=== PATIENT | male | born 1955 | race Caucasian/White ===

== ENCOUNTER 2018-12-12 08:24 | Day surgery (SDC) | payer MEDICARE, OTHER, SELFPAY ==
[2018-12-12] VITALS (8 sets, daily range): BP systolic 87–111; BP diastolic 49–67; PULSE 53–68; RESP 10–17; TEMP 36.3; O2SAT 94–97; BMI 25.5
[2018-12-12] MEDS: SODIUM CHLORIDE 0.9% 1,000 ML 70 ML IV (08:50)
--- NOTE | 2018-12-12 09:03 | PM.HP.1 ---
History of Present Illness Date Patient Seen: 12/12/18 Chief complaint: [id number] [phone] SCREENING COLONOSCOPY W/POSS BX Narrative: 63-year-old male here for colon cancer screening. He has no prior history of colonoscopy, no family history of colon cancer Patient History Family & Social History Social History: household members spouse Tobacco & Substance use: Smoking Status Former smoker Meds Home Medications Medication Instructions Recorded Confirmed Type epinephrine [EpiPen 2-Yared] 0.3 mg IJ SEE INSTRUCTIONS #2 ea 11/29/16 06/13/18 Rx zoster vaccine live (PF) [Zostavax 0.5 ml SQ X1 #0.5 ml 11/29/16 06/13/18 Rx (PF)] tadalafil [Cialis] 5 mg PO QDAY #30 tab 12/06/16 06/13/18 Rx doxazosin 8 mg PO HS #90 tab 06/20/17 06/13/18 Rx melatonin 5 mg tablet 5 mg PO BEDTIME PRN 06/13/18 06/13/18 History meloxicam 15 mg tablet 15 mg PO DAILY 06/13/18 06/13/18 History oxycodone-acetaminophen 0 tab PO Q6HP PRN 12/12/18 History Allergies Allergy/AdvReac Type Severity Reaction Status Date / Time BEE STING Allergy Severe SWELLING Uncoded 06/13/18 09:35 OF EXTREMITIES 09/12/14 Exam Vital Signs (past 8 hours): - 12/12/18 08:44 Temperature 97.3 F L Pulse Rate 68 Respiratory Rate 15 Blood Pressure 111/60 Pulse Oximetry 97 Oxygen Delivery Method Room Air Narrative Exam Narrative: General: Patient is well developed, not in apparent distress Cardiovascular: Regular rate and rhythm, no murmurs, rubs, or gallops; no evidence of edema; no palpable abdominal aortic aneurysm Gastrointestinal: Normoactive bowel sounds, soft, nontender, nondistended, no rebound tenderness, no hepatosplenomegaly, no evidence of hernia Assessment & Plan Plan: Assessment/Plan Narrative: 63-year-old male here for average risk colon cancer screening. Regarding the procedure(s), the risks and potential complications, benefits, and alternatives (including not doing the procedure) were discussed with the patient. The risks include but are not limited to bleeding, splenic injury, infection, perforation which may require surgical intervention, missed lesions, and adverse reactions to sedative medicines. After a question and answer period, the patient agreed to proceed with the procedure(s) and gives informed consent.
--- NOTE | 2018-12-12 09:08 | P.HP_ITS ---
History of Present Illness Date Patient Seen: 12/12/18 Chief complaint: [id number] SCREENING COLONOSCOPY W/POSS BX Narrative: 63-year-old male here for colon cancer screening. He has no prior history of colonoscopy, no family history of colon cancer Patient History Family & Social History Social History: household members spouse Tobacco & Substance use: Smoking Status Former smoker Meds Home Medications Medication Instructions Recorded Confirmed Type epinephrine [EpiPen 2-Yared] 0.3 mg IJ SEE INSTRUCTIONS #2 ea 11/29/16 06/13/18 Rx zoster vaccine live (PF) [Zostavax 0.5 ml SQ X1 #0.5 ml 11/29/16 06/13/18 Rx (PF)] tadalafil [Cialis] 5 mg PO QDAY #30 tab 12/06/16 06/13/18 Rx doxazosin 8 mg PO HS #90 tab 06/20/17 06/13/18 Rx melatonin 5 mg tablet 5 mg PO BEDTIME PRN 06/13/18 06/13/18 History meloxicam 15 mg tablet 15 mg PO DAILY 06/13/18 06/13/18 History oxycodone-acetaminophen 0 tab PO Q6HP PRN 12/12/18 History Allergies Allergy/AdvReac Type Severity Reaction Status Date / Time BEE STING Allergy Severe SWELLING Uncoded 06/13/18 09:35 OF EXTREMITIES 09/12/14 Exam Vital Signs (past 8 hours): - 12/12/18 08:44 Temperature 97.3 F L Pulse Rate 68 Respiratory Rate 15 Blood Pressure 111/60 Pulse Oximetry 97 Oxygen Delivery Method Room Air Narrative Exam Narrative: General: Patient is well developed, not in apparent distress Cardiovascular: Regular rate and rhythm, no murmurs, rubs, or gallops; no evidence of edema; no palpable abdominal aortic aneurysm Gastrointestinal: Normoactive bowel sounds, soft, nontender, nondistended, no rebound tenderness, no hepatosplenomegaly, no evidence of hernia Assessment & Plan Plan: Assessment/Plan Narrative: 63-year-old male here for average risk colon cancer screening. Regarding the procedure(s), the risks and potential complications, benefits, and alternatives (including not doing the procedure) were discussed with the patient. The risks include but are not limited to bleeding, splenic injury, infection, perforation which may require surgical intervention, missed lesions, and adverse reactions to sedative medicines. After a question and answer period , the patient agreed to proceed with the procedure(s) and gives informed consent.
--- NOTE | 2018-12-12 09:08 | PM.OP.ENDO ---
Operative Date/Time/Diagnoses Date of procedure: 12/12/18 Procedure Notes Procedure in detail: Surgeon: Cy Moffett MD Procedure: Colonoscopy Preoperative diagnosis: Average risk colon cancer screening Postoperative diagnosis: Sigmoid diverticulosis, grade 2 internal hemorrhoids Medications: Conscious sedation using 6 mg IV of Midazolam and 150 mcg IV of Fentanyl Preanesthesia Assessment An H and P was performed/updated and the Px?s ASA class is 1. The procedure was discussed in detail with the patient. The potential risks and complications including infection, bleeding, missed lesions, perforation, need for surgery in case of perforation, prolonged hospital stay, and were explained. A brief question and answer period was allotted and once all questions were answered, informed consent was obtained. The patient was brought back to the procedure room and placed on standard monitoring. The patient?s vital signs were monitored continuously throughout the entire procedure. Prior to starting, a timeout was performed to confirm the patient?s identity, allergies, medications, and procedure. Procedure in detail The patient was placed in left lateral decubitus position and once adequate sedation was obtained a IQRA was performed. The digital rectal examination did not reveal any palpable lesions. The tip of the colonoscope was placed in the anal canal and advanced without difficulty all the way to the cecum which was identified by the appendiceal orifice and the ileocecal valve. Careful examination was performed of all sethi of the colon with irrigation of any residual stool. In the sigmoid colon there was note of multiple medium-sized diverticula Retroflexion was performed in the rectum which revealed grade 2 internal hemorrhoids The patient tolerated the procedure well and will be brought back to the recovery area to be discharged once criteria are met. The prep was judged to be good/excellent and adequate to identify polyps less than 5 mm. The withdrawal time was 8 mins. The total physician intraservice time was 13 min. Complications There were no complications and estimated blood loss was zero. Recommendations: Resume previous diet Continue outPx medications Repeat colonoscopy in 10 years for screening If you are having any trouble with your hemorrhoids please contact our office, as you can be evaluated for possible hemorrhoid banding An emergency contact number was given to the patient for any complications related to the procedure
[2018-12-12] MEDS: MIDAZOLAM 5 MG/5 ML VIAL IV (09:29)
[2018-12-12] MEDS: fentaNYL 250 MCG/5 ML INJ IV (09:29)
--- NOTE | 2018-12-12 09:30 | PM.DS.1 ---
History of Present Illness Chief complaint: [id number] [phone] SCREENING COLONOSCOPY W/POSS BX Narrative: 63-year-old male here for colon cancer screening. He has no prior history of colonoscopy, no family history of colon cancer Discharge Providers Primary care physician: Greg Paiz MD Discharge provider: Cy Moffett MD Discharge Date: 12/12/18 Exam Vital Signs (past 8 hours): - 12/12/18 08:44 Temperature 97.3 F L Pulse Rate 68 Respiratory Rate 15 Blood Pressure 111/60 Pulse Oximetry 97 Oxygen Delivery Method Room Air Narrative Exam Narrative: General: Patient is well developed, not in apparent distress Cardiovascular: Regular rate and rhythm, no murmurs, rubs, or gallops; no evidence of edema; no palpable abdominal aortic aneurysm Gastrointestinal: Normoactive bowel sounds, soft, nontender, nondistended, no rebound tenderness, no hepatosplenomegaly, no evidence of hernia Discharge Plan Discharge Plan Patient Disposition: Home Discharge Med Rec/Prescriptions Prescriptions: Continue epinephrine [EpiPen 2-Yared] 0.3 MG/0.3 ML auto-injector 0.3 mg IJ SEE INSTRUCTIONS Qty: 2 RF: 0 zoster vaccine live (PF) [Zostavax (PF)] 19,400 UNIT/0.65 ML suspension for reconstitution 0.5 ml SQ X1 Qty: 0.5 RF: 0 tadalafil [Cialis] 5 MG tablet 5 mg PO QDAY Qty: 30 RF: 6 doxazosin 8 MG tablet 8 mg PO HS Qty: 90 RF: 3 oxycodone-acetaminophen 5 MG/325 MG tablet PO Q6HP PRN (Reason: pain) RF: 0 melatonin 5 mg tablet 5 mg PO BEDTIME PRN (Reason: Pain (Scale Score 4-6)) RF: 0 meloxicam 15 mg tablet 15 mg PO DAILY RF: 0 Discharge Orders: Discharge (Order); Ordered 12/12/18 Ordered By: Cy Moffett Visit Report/Discharge Packet Stand Alone Forms: Surgery Discharge Discharge Data Primary Care Provider: Greg Paiz V Attending Provider: Cy Moffett
== END 2018-12-12 10:24 | disposition home or self-care (01) ==
PROVIDERS: PCP Internal Medicine; Visit Provider Internal Medicine Gastroenterology
PROC: 0DJD8ZZ Inspection of Lower Intestinal Tract, Via Natural or Artificial Opening Endoscopic (ICD-10-PCS; CPT 45378; principal; 2018-12-12 09:30)
DX: Z12.11 Encounter for screening for malignant neoplasm of colon (principal); K57.30 Diverticulosis of large intestine without perforation or abscess without bleeding; K64.1 Second degree hemorrhoids; Z87.891 Personal history of nicotine dependence
CPT/HCPCS: G0121; J2250; J3010

== ENCOUNTER → 2019-08-01 12:19 | Outpatient (CLI) | payer MEDICARE, OTHER, SELFPAY ==
[2019-08-01 13:05] LABS: Aspartate Aminotransferase 34 IU/L (17-59); Cholesterol 193 mg/dL (140-199); Glucose 104 mg/dL (80-110); HDL Cholesterol 95 mg/dL (40-60); LDL Cholesterol Calculated 81 mg/dL (<100); Triglycerides 84 mg/dL (35-150)
[2019-08-01 13:35] LABS: Prostate Specific Antigen 0.813 ng/mL (0.10-4.00)
== END ==
PROVIDERS: PCP Internal Medicine; Visit Provider Internal Medicine
DX: E78.2 Mixed hyperlipidemia (principal); N40.0 Benign prostatic hyperplasia without lower urinary tract symptoms
CPT/HCPCS: 36415; 80061; 82947; 84153; 84450

== ENCOUNTER → 2019-11-29 15:45 | Outpatient (CLI) | payer MEDICARE, OTHER, SELFPAY ==
--- NOTE | 2019-11-29 15:49 | DI.RAD.S_ITS ---
PROCEDURE: XR TIBIA FIBULA RT 2V INDICATIONS: CONTUSION OF LEFT CALF TECHNIQUE: 2 views of the tibia and fibula were acquired. COMPARISON: None. FINDINGS: Bones: No fractures or dislocations. No suspicious bony lesions. Soft tissues: No suspicious soft tissue calcifications or masses. IMPRESSION: No fracture or foreign body seen. Dictated by: Tyrone Jernigan M.D. on 11/29/2019 at 16:13 Approved by: Tyrone Jernigan M.D. on 11/29/2019 at 16:13
== END ==
PROVIDERS: PCP Internal Medicine; Visit Provider Internal Medicine
DX: S80.12XA Contusion of left lower leg, initial encounter (principal); X58.XXXA Exposure to other specified factors, initial encounter
CPT/HCPCS: 73590

== ENCOUNTER → 2020-03-20 12:03 | Outpatient (CLI) | payer MEDICARE, OTHER, SELFPAY ==
--- NOTE | 2020-03-20 | DI.MRI.S_ITS ---
PROCEDURE: MR LUMBAR SPINE WO CON INDICATIONS: Sciatica, unspecified side TECHNIQUE: Noncontrast sagittal T1 spin echo and T2 fast echo, sagittal STIR, axial T1 and T2 fast spin echo through the lumbar spine. In cases with scoliosis, additional coronal T2 fast spin echo may be performed. COMPARISON: [facility], CT, L-SPINE WITHOUT CONTRAST, 04/21/2013, 14:02. FINDINGS: Image quality: Excellent. Alignment and Curvature: There is normal bony alignment. Bone Marrow: Reactive endplate change is noted adjacent to the L2-L3, L3-L4 and L4-L5 discs. No acute vertebral body compression fractures. Spinal Cord: Conus medullaris terminates at the L1 level. Visualized cord demonstrates normal signal and size. Paraspinous Soft Tissues: No paravertebral masses. L1-L2: Loss of disc signal and slight loss of disc height. Mild, diffuse disc bulge. Mild narrowing of the central canal. Mild bilateral neural foraminal narrowing. No neural compression. L2-L3: Loss of disc signal and height. Mild, diffuse disc bulge. Mild bilateral facet hypertrophy. Mild to moderate narrowing of the central canal. Mild to moderate bilateral neural foraminal narrowing. No neural compression. L3-L4: Loss of disc signal and height. Moderate, diffuse disc bulge. Mild bilateral facet hypertrophy. Mild narrowing of the central canal. Mild bilateral neural foraminal narrowing. No neural compression. L4-L5: Loss of disc signal and height. Moderate, diffuse disc bulge. Small right foraminal disc extrusion. Mild bilateral facet hypertrophy. Mild to moderate narrowing of the central canal. Severe right and moderate left neural foraminal narrowing with compression of the exiting right L4 nerve root. L5-S1: Loss of disc signal. Mild, diffuse disc bulge. Mild bilateral facet hypertrophy. No central stenosis. Moderate bilateral neural foraminal narrowing. No neural compression. There is a fissure in posterior annulus. IMPRESSION: 1. Multilevel degenerative disc disease. 2. Multilevel facet arthropathy. 3. L4-L5 right foraminal disc extrusion. Extruded disc material causes severe right neural foraminal narrowing and compresses the exiting right L4 nerve root. Please correlate with clinical data. 4. Mild to moderate L2-L3 and L4-L5 central canal narrowing. Mild L1-L2 at L3-L4 central canal narrowing. 5. Severe right and moderate left L4-L5 neuroforaminal narrowing. Moderate bilateral L5-S1 with neural foraminal narrowing. Mild to moderate bilateral L2-L3 neuroforaminal narrowing. Mild bilateral L1-L2 and L3-L4 neural foraminal narrowing. Dictated by: Sharifa Briggs MD, PhD on 03/20/2020 at 14:52 Approved by: Sharifa Briggs MD, PhD on 03/20/2020 at 15:01
== END ==
PROVIDERS: PCP Internal Medicine; Referring Provider Internal Medicine; Visit Provider Internal Medicine
DX: M51.16 Intervertebral disc disorders with radiculopathy, lumbar region (principal); M51.17 Intervertebral disc disorders with radiculopathy, lumbosacral region; M47.26 Other spondylosis with radiculopathy, lumbar region; M47.27 Other spondylosis with radiculopathy, lumbosacral region; M48.061 Spinal stenosis, lumbar region without neurogenic claudication; M48.07 Spinal stenosis, lumbosacral region
CPT/HCPCS: 72148

== ENCOUNTER → 2020-05-19 12:15 | Outpatient (CLI) | payer MEDICARE, OTHER, SELFPAY ==
[2020-05-19 13:13] LABS: Add Manual Diff / Slide Review NO; Basophils Absolute Auto 0 /uL (0-100); Basophils Percent Auto 0.9 % (0-2); Eosinophils Absolute Auto 100 /uL (0-450); Eosinophils Percent Auto 2.9 % (2-4); Hematocrit 35.9 % (41-53); Hemoglobin 12.4 g/dL (13.5-17.5); Lymphocytes Absolute Auto 1600 /uL (1100-4500); Lymphocytes Percent Auto 34.6 % (25-40); Mean Corpuscular HGB Conc 34.5 % (30-36); Mean Corpuscular Volume 95.4 fL (80-100); Monocytes Absolute Auto 400 /uL (0-900); Monocytes Percent Auto 9.5 % (3-14); Neutrophils Absolute Auto 2400 /uL (1500-7000); Neutrophils Percent Auto 52.1 % (50-75); Platelet Count 244 X10^3/uL (150-400); Red Blood Cell Count 3.76 X10^6/uL (4.5-5.9); Red Cell Distribution Width 12.3 % (11.6-14.8); White Blood Cell Count 4.7 X10^3/uL (4.5-11.0)
== END ==
PROVIDERS: PCP Internal Medicine; Referring Provider Orthopaedic Surgery; Visit Provider Orthopaedic Surgery
DX: Z01.818 Encounter for other preprocedural examination (principal); Z01.812 Encounter for preprocedural laboratory examination
CPT/HCPCS: 36415; 85025; 93005; 93010

== ENCOUNTER → 2020-05-25 15:19 | Outpatient (CLI) | payer MEDICARE, OTHER, SELFPAY ==
[2020-05-26 09:52] LABS: COVID19 Sendout Not Detected (Not Detect)
== END ==
PROVIDERS: PCP Internal Medicine; Visit Provider Student in an Organized Health Care Education/Training Program
DX: Z01.812 Encounter for preprocedural laboratory examination (principal)
CPT/HCPCS: 87635

== ENCOUNTER 2020-05-28 06:15 | Day surgery (SDC) | payer MEDICARE, OTHER, SELFPAY ==
[2020-05-22 08:32] VITALS: BMI 25.9
[2020-05-28] VITALS (12 sets, daily range): BP systolic 88–120; BP diastolic 50–76; PULSE 48–67; RESP 7–20; TEMP 35.7–36.7; O2SAT 96–98; BMI 25.4
--- NOTE | 2020-05-28 | DI.RAD.S_ITS ---
PROCEDURE: XR LUMBAR SPINE 2-3V INDICATIONS: L45 DISCECTOMY TECHNIQUE: 2 views of the lumbar spine were acquired. COMPARISON: [facility], MR, MR LUMBAR SPINE WO CON, 03/20/2020, 12:44. [facility], CR, L-SPINE 2-3 VIEWS, 11/03/2009, 10:57. FINDINGS: Bones: Intraoperative imaging shows right sided L4-5 port and probe positioning for discectomy. Soft tissues: Overlying bowel gas pattern is normal. No suspicious soft tissue calcifications. IMPRESSION: Right-sided L4-5 operative positioning. Dictated by: Tyrone Jernigan M.D. on 05/28/2020 at 8:50 Approved by: Tyrone Jernigan M.D. on 05/28/2020 at 8:52
[2020-05-28] MEDS: LACTATED RINGERS 1,000 ML 42 ML IV (07:10)
--- NOTE | 2020-05-28 07:17 | PM.PREOP ---
Pre-operative Note COVID-19 COVID-19 status: Negative Result date/Date tested (Pos, Neg/Pending): 05/25/20 Interval Note History & Physical reviewed/Exam performed by Physician: Yes Changes to H&P: No
[2020-05-28] MEDS: CEFAZOLIN 2 GM/100 ML FROZ.PIGGY IV (07:46)
--- NOTE | 2020-05-28 08:26 | SUR.OPER ---
Prone on spine table, head in foam head support, padded chest and pelvic supports, gel pad at knees, lower legs supported by pillows; nipples, genitalia and toes free of pressure, arms secured on foam padded arm boards at <90 degrees abduction. Tape over blanket at thigh secured to table.
[2020-05-28] MEDS: BUPIVACAINE 0.25% (PF) 8 ML, fentaNYL 100 MCG INJ (08:32)
[2020-05-28] MEDS: SODIUM CHLORIDE 0.9% 1,000 ML, GENTAMICIN 80 MG IRR (08:33)
[2020-05-28] MEDS: THROMBIN (RECOMBINANT) 5,000 UNIT VIAL 5000 UNIT TOP (08:35)
[2020-05-28] MEDS: VANCOMYCIN 1,000 MG VIAL 1000 MG TOP (08:36)
--- NOTE | 2020-05-28 09:20 | PM.OP.1 ---
Operative Date/Time/Diagnoses Date of procedure: 05/28/20 Time of procedure: 09:21 Pre-op diagnosis: Lumbar disc herniation with radiculopathy Post-op diagnosis: same Procedure & Clinicians Procedure: L4-5 right-sided diskectomy Use of microscope Placement of epidural catheter Same procedure as scheduled: Yes Indications: [age] year old male with intractable pain from lumbar disc herniation. They had failed conservative management and requested operative intervention. Risks and benefits of surgery were discussed and appropriate consents were obtained. Surgeon: Geoff Villavicencio Anesthesia Type: General Operative Notes Findings: None Closure Type: primary Specimen(s): none sent Estimated Blood Loss (mL): 10 Procedure in detail: Patient was brought to the operating room and intubated on the table. A time-out was performed. There were rolled over the well-padded prone position on the Gamaliel table. The back was prepped and draped in standard sterile fashion. Preoperative antibiotics were given. Using fluoroscopy, a 3 cm incision was made to the well-marked right of the midline at the L4-5 level. We used Bovie to come down to and split the fascia. We then used the [employer] Ma[employer] dilators with fluoroscopy and then opened our retractors. The soft tissue was cleared off with Bovie, a marker was placed, an x-ray was taken to confirm positioning. We then brought in the microscope. A combination of high-speed bur and Kerrison were used to perform a right-sided hemilaminotomy and hemifacetectomy. We carefully retracted the dura and expose the disc. This was cleared with bipolar. A scalpel used to perform an annulotomy and a pituitary was used to perform the diskectomy. He still had a very large portion of the disc as well as osteophyte going into the foraminal space in the subarticular region. We continued with the hemilaminotomy and undermined the facet until we could clear out the neural foramen. We isolated the nerve root and swept it out of the way. We then used a Kerrison to remove some of the posterior osteophytes and smoothed down the back wall of the vertebral body. We used a backbiting pituitary to go out to the subarticular space and remove more disc tissue. Once this was done, we could sweep the ball probe along the exiting nerve root and it was completely freed up. The central canal was also wide open. The ball probe was also placed into the disc and moved around to make sure there were no further loose fragments. Once everything was adequately decompressed, the wound was copiously irrigated. An epidural catheter was filled with 100 mcg of fentanyl and 8 mL of 0.25% Marcaine. The dura was carefully depressed under the laminotomy site and the catheter was advanced 6 cm cephalad. The retractor was removed and the fascia was closed. The epidural catheter was then injected without resistance and removed. Superficial and skin were closed. Sterile dressing was placed. The patient was then rolled over, transferred to the stretcher, and brought to recovery room without complications. Complications: none Post-operative Condition: stable Disposition: PACU Plan for aftercare: Outpatient. Limited bend, twist, lift for 2 weeks.
--- NOTE | 2020-05-28 10:06 | SUR.PHASEI ---
Patient arrived in PACU with oral airway and sedated. Rhys DP + 2.Cap refill > 2 seconds. Patient does not arouse to sternal rub.
--- NOTE | 2020-05-28 10:10 | SUR.PHASEI ---
Oral airway out.
--- NOTE | 2020-05-28 10:24 | SUR.PHASEI ---
Denies pain and nausea.
[2020-05-28] MEDS: BENZOCAINE/MENTHOL 1 LOZ PKT 1 EACH PO (11:22)
--- NOTE | 2020-05-28 14:28 | SUR.PHASEII ---
1300 late entry: discharged patient in stable condition with all belongings returned. VSS. Home with via private vehicle.
== END 2020-05-28 13:00 | disposition home or self-care (01) ==
PROVIDERS: PCP Internal Medicine; Referring Provider Internal Medicine; Visit Provider Orthopaedic Surgery
PROC: (CPT 63030; principal; 2020-05-28 07:45)
DX: M51.16 Intervertebral disc disorders with radiculopathy, lumbar region (principal)
CPT/HCPCS: 63030; 72100; 76000; J0690; J1100; J2250; J2405; J2704; J3010

== ENCOUNTER → 2020-06-18 19:07 | Outpatient (CLI) | payer MEDICARE, OTHER, SELFPAY ==
--- NOTE | 2020-06-18 19:09 | DI.MRI.S_ITS ---
PROCEDURE: MR KNEE RT WO CON INDICATIONS: UNILATERAL PRIMARY OSTEOARTHRITIS, RIGHT KNEE TECHNIQUE: Noncontrast sagittal PD fast spin echo and T2 fast spin echo with fat saturation, sagittal 3-D FLASH with fat saturation; coronal T1 spin echo and PD fast spin echo with fat saturation, and axial PD fast spin echo with fat saturation through the knee. COMPARISON: [facility], MR, KNEE WITHOUT CONTRAST, 08/07/2017, 7:05. FINDINGS: Image quality: Excellent. Menisci: There is blunting of the lateral meniscus most prominent in the posterior horn and body likely reflecting postsurgical changes. There is degenerative tearing along the free edge of the remnant meniscus as well as a peripheral tear along the superior articular surface of the posterior horn involving the meniscocapsular junction. A horizontally oriented longitudinal tear is redemonstrated within the body and posterior horn of the medial meniscus extending to the inferior articular surface and free edge. The meniscal root ligaments appear intact. 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 The posterior cruciate ligament appears intact. Medial structures: The medial collateral ligament appears intact. The semimembranosus tendon insertions and meniscocapsular junction appear intact. Visualized portions of the pes anserinus tendons appear intact without associated bursal fluid collections. Lateral structures: The lateral collateral ligament, long and short heads of the biceps femoris tendon appear intact. The popliteus tendon appears thickened proximally at its origin with peritendinous edema compatible with sequelae of a mild strain. Findings are similar to the prior study. Iliotibial band appears normal. Anterior structures: The quadriceps and patellar tendons appear intact. There is slight lateral shift of the patella. No femoral trochlear dysplasia or ventral trochlear prominence. No edema in the infrapatellar fat pad. Bones and cartilage: No bone marrow contusions or fractures. There is tricompartmental osteophytosis. Moderate to severe cartilage thinning is demonstrated in the lateral compartment with associated subchondral edema and sclerosis, most prominent along the lateral tibial plateau. The findings are progressed compared to the prior study. In the medial compartment, there is mild to moderate cartilage thinning with chondral fissuring associated with small foci of subchondral edema. In the patellofemoral compartment, there is mild cartilage thinning with superficial chondral fraying. Joint space: There is a small joint effusion. No Doe's cyst. Normal appearing synovial plicae are incidentally noted. IMPRESSION: 1. Diminutive blunted appearance of the lateral meniscus likely reflecting postsurgical changes. A peripheral tear is redemonstrated within the posterior horn as well as degenerative tearing in the remnant meniscus. 2. Horizontally oriented longitudinal tear in the medial meniscus appears similar to the prior study. 3. Tricompartmental osteoarthritic changes including moderate to severe cartilage degeneration in the lateral compartment. Findings are progressed compared to the prior study. 4. Small joint effusion. Dictated by: Migue Leon M.D. on 06/19/2020 at 9:14 Approved by: Migue Leon M.D. on 06/19/2020 at 9:33
== END ==
PROVIDERS: PCP Internal Medicine; Referring Provider Internal Medicine; Visit Provider Orthopaedic Surgery
DX: M17.11 Unilateral primary osteoarthritis, right knee (principal); S83.261A Peripheral tear of lateral meniscus, current injury, right knee, initial encounter; S83.241A Other tear of medial meniscus, current injury, right knee, initial encounter; M25.461 Effusion, right knee
CPT/HCPCS: 73721

== ENCOUNTER 2020-06-22 16:39 | Observation (INO) | payer MEDICARE, OTHER, SELFPAY ==
[2020-06-22] VITALS (10 sets, daily range): BP systolic 111–161; BP diastolic 58–72; PULSE 46–75; RESP 12–33; TEMP 36.5–36.7; O2SAT 95–97; BMI 25.9
--- NOTE | 2020-06-22 | DI.ECHO.S_ITS ---
[facility] +---------+ : : [address] [place] : : : : [id number] : : : : Phone: [phone]---------+ Echocardiogram Report + + :Name: DORON NGUYEN Study Date: 06/23/2020 Height: 67 in : :[facility] Weight: 166 lb : : Gender: Male BSA: 1.9 m2 : :: 1955 Age: 65 yrs BP: 161/67 mmHg: :Reason For Study: CHEST PAIN : :Ordering Physician: Jane : :Hospitalist Performed By: Yola Bender : :Referring: KEVIN JIMENEZ : + + Interpretation Summary The left ventricle is normal in size and wall thickness. The ejection fraction is estimated to be 60-65%. The right ventricle is normal in size and function. There is mild to moderate mitral regurgitation. There is mild tricuspid regurgitation. The right ventricular systolic pressure is estimated to be at least 34 mmHg based on an estimated right atrial pressure of 3 mm Hg. Procedure: A two-dimensional transthoracic echocardiogram with color flow and Doppler was performed. The study quality was technically adequate. There is no prior echocardiogram noted for this patient. The patient was in sinus rhythm with heart rates between 63-71 bpm during the exam. Left Ventricle: The left ventricle is normal in size and wall thickness. A false chord is noted (normal variant). There is no thrombus. The ejection fraction is estimated to be 60-65%. There are no focal wall motion abnormalities. Diastolic parameters suggest a relaxation abnormality of the left ventricle, consistent with probable normal filling pressures. Right Ventricle: The right ventricle is normal in size and function. Atria: The left atrial size is normal. Right atrial size is normal. There is no Doppler evidence for an interatrial shunt. Mitral Valve: There is mild mitral annular calcification. The mitral valve chordae are thickened and/or calcified. There is a flat closure plane of the the mitral valve leaflets. There is mild to moderate mitral regurgitation. Aortic Valve: The aortic valve is trileaflet. The aortic valve opens well. There is no aortic valve stenosis. No aortic regurgitation is present. Tricuspid Valve: The tricuspid valve is normal in structure and function. The right ventricular systolic pressure is estimated to be at least 34 mmHg based on an estimated right atrial pressure of 3 mm Hg. There is mild tricuspid regurgitation. Pulmonic Valve: The pulmonic valve is not well visualized. The pulmonic valve is not well seen, but is grossly normal. There is trace pulmonic regurgitation. Great Vessels: The aortic root is normal size. The dimensions of the ascending aorta are normal. The IVC is of normal diameter and collapses greater than 50% with a sniff. This suggests a low right atrial pressure of 3 mm Hg. Pericardium/ Pleura There is no pericardial effusion. There is no pleural effusion. MMode/2D Measurements & Calculations LVIDd: 5.0 cm LVOT diam: 2.2 cm LVIDs: 3.1 cm Ao root diam: 2.6 cm FS: 37.1 % asc Aorta Diam: 2.9 cm EPSS: 1.1 cm Ao Arch Diam (Prox Trans): 3.1 cm IVSd: 0.72 cm LVPWd: 0.75 cm LV guradado. diameter/BSA (cm/m^2): 2.7 LV sys. diameter/BSA (cm/m^2): 1.7 LA A2 area: 19.2 cm2 RA long axis: 5.5 cm LA A4 area: 20.5 cm2 RA area: 19.2 cm2 LA length (vol): 5.7 cm RA vol: 56.7 ml LA vol: 58.6 ml RA : 30.4 ml/m2 LA vol index: 31.4 ml/m2 IVC diam: 1.9 cm RVD1 (basal): 3.9 cm TAPSE: 2.6 cm Doppler Measurements & Calculations Ao V2 max: 196.9 cm/sec LVOT Max George: 129.7 cm/sec Ao V2 mean: 120.3 cm/sec LV V1 max P.7 mmHg Ao max P.5 mmHg LV V1 VTI: 23.8 cm Ao mean P.9 mmHg WHITNEY(I,D): 2.5 cm2 Ao V2 VTI: 34.7 cm WHITNEY(V,D): 2.4 cm2 sev ratio: 0.69 WHITNEY indexed to BSA (cm^2/m^2): 1.3 MV E max george: 83.2 cm/sec TR max george: 279.7 cm/sec MV A max george: 94.8 cm/sec TR max P.3 mmHg MV E/A: 0.88 PA V2 max: 113.2 cm/sec Med Peak E' George: 8.8 cm/sec PA V2 mean: 78.3 cm/sec E/E' med: 9.5 PA mean P.7 mmHg Lat Peak E' George: 10.3 cm/sec PA pr(Accel): 48.2 mmHg E/E' lat: 8.1 E/e' average: 8.8 MV dec time: 0.28 sec SV(OT): 87.0 ml Reading Physician:12:31 PM
--- NOTE | 2020-06-22 | DI.NM.S_ITS ---
PROCEDURE: NM BENJAMIN PERF SPECT SINGLE STUDY Exercise myocardial perfusion SPECT with gated imaging and ejection fraction RADIOPHARMACEUTICAL: 21.3 mCi Tc-99m sestamibi IV at peak exercise. INDICATIONS: chest pain, fatigue TECHNIQUE: Radiopharmaceutical was injected at peak stress test. SPECT images were obtained, with perfusion images in short axis, horizontal long axis, and vertical long axis views. Gated images were reviewed using [employer] software. COMPARISON: None. CARDIAC STRESS: A standard Sharan treadmill exercise tolerance test was performed by the patient under the supervision of an attending staff. The patient exercised for 8 minutes and 0 seconds; functional aerobic impairment (IESHA) is -7%. Hemodynamic data: There is normal blood pressure and heart response to exercise. Patient achieved 101 of maximum predicted heart rate. Symptoms: Patient denied anginal chest pain during exercise. EKG: No diagnostic changes of ischemia; no ectopy. FINDINGS: Raw data: There is good labeling of myocardium by radiotracer. No significant motion artifacts. Gaai-tx-xugkp ratio is 0.38 (normal is less than 0.38 for sestamibi tracer, and less than 0.50 for thallium tracer). Left ventricular function: Gated images demonstrate normal left ventricle wall thickening. No segmental wall motion abnormalities. Left ventricle end diastolic volume is 105 mL. Left ventricle stress ejection fraction is 74%; normal values are above 45%. Myocardial perfusion: Stress prone images are normal IMPRESSION: Low risk, normal treadmill stress only nuclear study. 1) No perfusion evidence of ischemia or infarction. 2) Normal left ventricular size, wall motion, and systolic function (EF post stress 74%). 3) No ECG evidence of ischemia or infarction. 4) No angina during the study. 5) Above average exercise tolerance (10.1 METs, IESHA -7%). Target heart rate achieved. Apprporiate BP response to exercise. 6) No prior nuclear stress test available for comparison. Dictated by: Chloé Srinivasan MD on 06/23/2020 at 16:49 Approved by: Chloé Srinivasan MD on 06/23/2020 at 16:52
--- NOTE | 2020-06-22 17:33 | DI.RAD.S_ITS ---
PROCEDURE: XR CHEST 1V INDICATIONS: chest pain TECHNIQUE: One view of the chest was acquired. COMPARISON: [facility], , CHEST 1 VIEW, 04/21/2013, 13:53. FINDINGS: Surgical changes and devices: None. Lungs and pleura: Lungs are clear. No pleural effusions or pneumothorax. Mediastinum: Mediastinal contours appear normal. Heart size is normal. Bones and chest wall: No suspicious bony lesions. Overlying soft tissues appear unremarkable. IMPRESSION: No acute disease Dictated by: Nir Kaufman M.D. on 06/22/2020 at 18:07 Approved by: Nir Kaufman M.D. on 06/22/2020 at 18:07
[2020-06-22] MEDS: ASPIRIN 81 MG CHEW TAB 324 MG PO (17:41)
--- NOTE | 2020-06-22 18:10 | ED_ITS ---
HPI - SOB/Dyspnea General Chief Complaint: Shortness of Breath/Dyspnea Stated Complaint: sent for tests so he doesn't Time Seen by Provider: 06/22/20 17:33 Source: patient and family Mode of arrival: Ambulatory Limitations: no limitations History of Present Illness HPI Narrative: 65-year-old male former smoker with history of BPH presents at the request of his primary care provider with his . Patient suffered injury to his back a few months ago which resulted in the need for orthopedic spine surgery. In the aftermath of this surgery he is developed increasing exertional fatigue and dyspnea in the absence of other symptoms such as dizziness, lightheadedness nor chest pain. He has had no cough or hemoptysis. He denies any nausea, vomiting or unexplained diaphoresis. He denies any lower extremity swelling, pain or redness. MD Complaint: shortness of breath Onset (ago): week(s) Severity: moderate Consistency/Duration: progressively worsening Relieving factors: rest Exacerbating factors: exertion Associated symptoms: denies other symptoms Treatment prior to arrival: none Related Data Home Medications Medication Instructions Recorded Confirmed melatonin 5 mg tablet 5 mg PO BEDTIME PRN 06/13/18 06/22/20 meloxicam 15 mg tablet 15 mg PO DAILY 06/13/18 06/22/20 tadalafil [Cialis] 5 mg PO QDAY PRN 05/28/20 06/22/20 tizanidine 2 mg PO BID PRN 05/28/20 06/22/20 doxazosin 8 mg PO DAILY 06/22/20 06/22/20 Previous Rx's Medication Instructions Recorded epinephrine [EpiPen 2-Yared] 0.3 mg IJ SEE INSTRUCTIONS #2 ea 11/29/16 oxycodone-acetaminophen [Percocet] 1 tab PO Q4H PRN #15 tab 05/28/20 Allergies Allergy/AdvReac Type Severity Reaction Status Date / Time BEE STING Allergy Severe SWELLING Uncoded 05/28/20 06:54 OF EXTREMITIES 09/12/14 Review of Systems Constitutional Constitutional: Denies chills, Denies fatigue, Denies fever(s), Denies frequent falls, Denies lethargy and Denies weakness Eyes Eyes: Denies change in vision, Denies eye discharge, Denies irritation and [place] es loss of vision ENT Ears, Nose, Mouth, and Throat: Denies change in voice, Denies dizziness, Denies neck pain, Denies sore throat and Denies throat swelling Cardiovascular Cardiovascular: Denies chest pain, Denies irregular heart rhythm, Denies lightheadedness, Denies palpitations, Denies dyspnea, Denies dyspnea on exertion and Denies orthopnea Comments: Increasing exertional fatigue and dyspnea Respiratory Respiratory: Denies cough, Denies dyspnea, Denies dyspnea on exertion and Denies wheezing Gastrointestinal Gastrointestinal: Denies abdominal pain, Denies change in bowel habits, Denies diarrhea, Denies nausea and Denies vomiting Musculoskeletal Musculoskeletal: Denies neck pain and Denies numbness Integumentary/Breasts Skin/Breast: Denies pruritus, Denies erythema, Denies rash and Denies wounds Neurologic Neurologic: Denies behavioral changes, Denies confusion, Denies dizziness, Denies frequent falls, Denies loss of vision, Denies numbness and Denies weakness Psychiatric Psychiatric: Denies anxiety, Denies behavioral changes, Denies confusion, Denies depression, Denies homicidal ideation and Denies suicidal ideation Endocrine Endocrine: Denies fatigue, Denies flushing and Denies palpitations Hematologic/Lymphatic Hematologic/Lymphatic: Denies easy bruising Allergic/Immunologic Allergic/Immunologic: Denies urticaria, Denies throat swelling and Denies wheezing Patient History Medical History BPH (benign prostatic hyperplasia) (Acute) Cervical spine disease (Acute 1979) Chronic back pain (Acute) Compression fracture of L2 (Acute 2012) Depression (Acute) Erectile dysfunction (Acute) Former smoker (Acute) Fractures (Acute) Hearing loss (Acute) Lumbar disc herniation with radiculopathy (Acute) Mild sleep apnea (Acute 2017) Osteoarthritis (Acute) Seasonal allergies (Acute) Shoulder pain (Acute) Tendonitis (Acute) Surgical History Hx of left inguinal hernia repair (Acute 2009) Hx of right inguinal hernia repair (Acute 1997) Hx of thumb surgery (Acute ~1989) S/P lumbar discectomy (Acute) Status post hernia repair Status post hernia repair Family History Other Adopted person Social History household members: spouse Smoking Status: Former smoker alcohol intake: current Smoking Status: Former smoker tobacco type: cigarettes alcohol intake frequency: 3 or more drinks per day Alcohol type: wine Substance Use Type: marijuana Exam Narrative Exam Narrative: GENERAL: [65] year old patient appears stated age. Well-nourish ed, well-developed patient, in mild distress. HEAD: Atraumatic. Normocephalic. EYES: Pupils equal round and reactive. Extraocular motions intact. No scleral icterus. No injection or drainage. ENT: Nose without bleeding, purulent drainage. Throat without erythema, tonsillar hypertrophy or exudate. Airway patent. NECK: Trachea midline. Non tender CARDIOVASCULAR: Regular rate and rhythm without murmurs, gallops, or rubs. RESPIRATORY: Clear to auscultation. Breath sounds equal bilaterally. No wheezes, rales, or rhonchi. GASTROINTESTINAL: Abdomen soft, non-tender, nondistended. EXTREMITIES: No edema or joint tenderness. BACK: Nontender without deformity or crepitance. No flank tenderness. NEURO: AOx3. SKIN: No rash or erythema of visible areas Initial Vital Signs Initial Vital Signs: Vital Signs Temperature 98.0 F 06/22/20 16:50 Pulse Rate 75 06/22/20 16:50 Respiratory Rate 16 06/22/20 16:50 Blood Pressure 116/72 06/22/20 16:50 Pulse Oximetry 95 06/22/20 16:50 Course Orders Ordered: Hydrocodone Bitart/Acetaminophen ([place] 5/325) 2 tab PO Q6HR PRN PRN Reason: Pain, Moderate (4-6) Aspirin (Aspirin Ec) 81 mg PO DAILY [facility] Doxazosin Mesylate (Cardura) 8 mg PO DAILY [facility] Morphine Sulfate (Morphine) 2 mg IV Q5MIN PRN PRN Reason: Chest Pain Naloxone HCl (Narcan) 0.2 mg IV Q2MIN PRN PRN Reason: Opiate Reversal Nitroglycerin (Nitrostat) 0.4 mg SL [id number] PRN PRN Reason: Chest Pain Non-Formulary Medication (Melatonin) 5 mg PO BEDTIME PRN PRN Reason: Pain (Scale Score 4-6) Ondansetron HCl (Zofran) 4 mg IV Q8HR PRN PRN Reason: Nausea And Vomiting Discontinued Medications Aspirin (Aspirin Chew) 324 mg PO NOW ONE Stop: 06/22/20 17:34 Last Admin: 06/22/20 17:41 Dose: 324 mg Documented by: JANE Vital Signs Vital signs: Vital Signs - 8 hr 06/22/20 16:50 Temperature 98.0 F Pulse Rate 75 Respiratory Rate 16 Blood Pressure 116/72 Pulse Oximetry 95 MDM - SOB/Dyspnea Lab Data Result diagrams: 06/23/20 06:14 06/22/20 17:50 Labs: Lab Results 06/22/20 06/22/20 06/22/20 Range/Units 17:50 17:50 17:50 WBC 6.1 (4.5-11.0) X10^3/uL RBC 3.85 L (4.5-5.9) X10^6/uL Hgb 12.5 L (13.5-17.5) g/dL Hct 36.4 L (41-53) % MCV 94.5 (80-100) fL MCH 32.3 (26-34) PG MCHC 34.2 (30-36) % RDW 12.6 (11.6-14.8) % Plt Count 218 (150-400) X10^3/uL Neut % (Auto) 65.6 (50-75) % Lymph % (Auto) 21.3 L (25-40) % [place] % (Auto) 9.3 (3-14) % Eos % (Auto) 2.9 (2-4) % Baso % (Auto) 0.9 (0-2) % Neut # (Auto) 4000 (3804-7344) /uL Lymph # (Auto) 1300 (3781-3861) /uL [place] # (Auto) 600 (0-900) /uL Eos # (Auto) 200 (0-450) /uL Baso # (Auto) 100 (0-100) /uL PT 12.6 (10.1-12.7) SECONDS INR 1.1 (0.9-1.3) APTT 31 (26.4-36.2) SECONDS D-Dimer (<230) ng/mL Sodium 137 (137-145) mmol/L Potassium 3.8 (3.4-5.1) mmol/L Chloride 106 (98-107) mmol/L Carbon Dioxide 27 (22-32) mmol/L BUN 21 H (9-20) mg/dL Creatinine 0.94 (0.66-1.25) mg/dL Estimated GFR > 60.0 (>60) mL/min BUN/Creatinine Ratio 22.3 H (6-22) Glucose 100 (80-110) mg/dL Calcium 9.4 (8.4-10.2) mg/dL Total Bilirubin 1.1 (0.2-1.3) mg/dL AST 38 (17-59) IU/L ALT 31 (<50) IU/L Alkaline Phosphatase 57 (38-126) U/L Total Creatine Kinase 197 H (55-170) U/L CK-MB (CK-2) 3.30 H (<2.37) ng/mL CK-MB (CK-2) Rel Index 1.7 (1.5-5.0) % Troponin I < 0.012 (0.01-0.034) ng/mL Total Protein 6.5 (6.3-8.2) g/dL Albumin 4.1 (3.5-5.0) g/dL Globulin 2.4 (1.7-4.1) g/dL Albumin/Globulin Ratio 1.7 (1.0-2.8) Lipase 75 (23-300) U/L TSH (0.47-4.68) uIU/mL 06/22/20 06/22/20 Range/Units 17:50 17:50 WBC (4.5-11.0) X10^3/uL RBC (4.5-5.9) X10^6/uL Hgb (13.5-17.5) g/dL Hct (41-53) % MCV (80-100) fL MCH (26-34) PG MCHC (30-36) % RDW (11.6-14.8) % Plt Count (150-400) X10^3/uL Neut % (Auto) (50-75) % Lymph % (Auto) (25-40) % [place] % (Auto) (3-14) % Eos % (Auto) (2-4) % Baso % (Auto) (0-2) % Neut # (Auto) (8428-3654) /uL Lymph # (Auto) (1363-3312) /uL [place] # (Auto) (0-900) /uL Eos # (Auto) (0-450) /uL Baso # (Auto) (0-100) /uL PT (10.1-12.7) SECONDS INR (0.9-1.3) APTT (26.4-36.2) SECONDS D-Dimer < 200 (<230) ng/mL Sodium (137-145) mmol/L Potassium (3.4-5.1) mmol/L Chloride (98-107) mmol/L Carbon Dioxide (22-32) mmol/L BUN (9-20) mg/dL Creatinine (0.66-1.25) mg/dL Estimated GFR (>60) mL/min BUN/Creatinine Ratio (6-22) Glucose (80-110) mg/dL Calcium (8.4-10.2) mg/dL Total Bilirubin (0.2-1.3) mg/dL AST (17-59) IU/L ALT (<50) IU/L Alkaline Phosphatase (38-126) U/L Total Creatine Kinase (55-170) U/L CK-MB (CK-2) (<2.37) ng/mL CK-MB (CK-2) Rel Index (1.5-5.0) % Troponin I (0.01-0.034) ng/mL Total Protein (6.3-8.2) g/dL Albumin (3.5-5.0) g/dL Globulin (1.7-4.1) g/dL Albumin/Globulin Ratio (1.0-2.8) Lipase (23-300) U/L TSH 1.65 (0.47-4.68) uIU/mL MDM Narrative Medical decision making narrative: Patient with exertional dyspnea and fatigue after surgery is at high risk for pulmonary embolism and concern for cardiac disease. No report of pain. Nonischemic EKGs. Troponin unremarkable. D-dimer less than 200, therefore no CT angiogram performed. Given increasing exertional fatigue patient requires hospital admission for provocative testing and echocardiogram. Discharge Plan Departure Patient Disposition: Admitted as Observation Clinical Impression: Chest pain Qualifiers: Chest pain type: unspecified Qualified Code(s): R07.9 - Chest pain, unspecified Discharge Date/Time: 06/22/20 21:30 Referrals: Greg Paiz MD [Primary Care Provider] - Admit Date/Time: 06/22/20 19:57 Admit Provider: Vangie Kaufman
[2020-06-22 18:13] LABS: INR 1.1 (0.9-1.3); Prothrombin Time 12.6 SECONDS (10.1-12.7)
[2020-06-22 18:16] LABS: PTT Partial Thromboplastin Tim 31 SECONDS (26.4-36.2)
[2020-06-22 18:19] LABS: Add Manual Diff / Slide Review NO; Alanine Aminotransferase 31 IU/L (<50); Albumin 4.1 g/dL (3.5-5.0); Albumin Globulin Ratio 1.7 (1.0-2.8); Alkaline Phosphatase 57 U/L (38-126); Aspartate Aminotransferase 38 IU/L (17-59); BUN Creatinine Ratio 22.3 (6-22); Basophils Absolute Auto 100 /uL (0-100); Basophils Percent Auto 0.9 % (0-2); Bilirubin Total 1.1 mg/dL (0.2-1.3); Blood Urea Nitrogen 21 mg/dL (9-20); Calcium 9.4 mg/dL (8.4-10.2); Carbon Dioxide 27 mmol/L (22-32); Chloride 106 mmol/L (98-107); Creatine Kinase 197 U/L (55-170); Eosinophils Absolute Auto 200 /uL (0-450); Eosinophils Percent Auto 2.9 % (2-4); Estimated Glomerular Filt Rate > 60.0 mL/min (>60); Globulin 2.4 g/dL (1.7-4.1); Glucose 100 mg/dL (80-110); Hematocrit 36.4 % (41-53); Hemoglobin 12.5 g/dL (13.5-17.5); Lipase 75 U/L (23-300); Lymphocytes Absolute Auto 1300 /uL (1100-4500); Lymphocytes Percent Auto 21.3 % (25-40); Mean Corpuscular HGB Conc 34.2 % (30-36); Mean Corpuscular Hemoglobin 32.3 PG (26-34); Mean Corpuscular Volume 94.5 fL (80-100); Monocytes Absolute Auto 600 /uL (0-900); Monocytes Percent Auto 9.3 % (3-14); Neutrophils Absolute Auto 4000 /uL (1500-7000); Neutrophils Percent Auto 65.6 % (50-75); Platelet Count 218 X10^3/uL (150-400); Potassium 3.8 mmol/L (3.4-5.1); Red Blood Cell Count 3.85 X10^6/uL (4.5-5.9); Red Cell Distribution Width 12.6 % (11.6-14.8); Sodium 137 mmol/L (137-145); Total Protein 6.5 g/dL (6.3-8.2); White Blood Cell Count 6.1 X10^3/uL (4.5-11.0)
[2020-06-22 18:29] LABS: Troponin I < 0.012 ng/mL (0.01-0.034)
[2020-06-22 18:30] LABS: D Dimer < 200 ng/mL (<230)
[2020-06-22 18:32] LABS: CKMB % Relative Index 1.7 % (1.5-5.0); HEMOLYSIS 17 (0-50)
[2020-06-22 21:12] LABS: COVID19 -Nasal RAPID Negative (Negative)
[2020-06-23] VITALS: BP 102/54; PULSE 56; RESP 18; TEMP 36.4; O2SAT 97
[2020-06-23 00:05] LABS: TSH w/ Reflex to FT4 1.65 uIU/mL (0.47-4.68)
[2020-06-23 00:37] LABS: Troponin I < 0.012 ng/mL (0.01-0.034)
--- NOTE | 2020-06-23 01:09 | PC.ADMIT ---
[id number] [facility] Admission Note: The patient,Rolando Mcmahon,65 y/o, was given written information regarding hospital policies, unit procedures and contact persons. Patient's smoking status: Former smoker. Vital Signs - 8 hr 06/22/20 17:59 06/22/20 18:00 06/22/20 18:30 Temperature Pulse Rate 59 L 59 L 57 L Respiratory Rate 33 H 27 H 28 H Blood Pressure 111/58 L Pulse Oximetry 97 97 97 06/22/20 18:31 06/22/20 19:00 06/22/20 19:30 Temperature Pulse Rate 57 L 54 L 51 L Respiratory Rate 24 25 H 12 Blood Pressure 133/66 125/60 119/66 Pulse Oximetry 97 97 96 06/22/20 20:00 06/22/20 20:01 06/22/20 20:40 Temperature 97.7 F Pulse Rate 54 L 54 L 46 L Respiratory Rate 33 H 28 H 17 Blood Pressure 161/67 H 121/67 Pulse Oximetry 97 97 97 06/23/20 00:00 Temperature 97.5 F L Pulse Rate 56 L Respiratory Rate 18 Blood Pressure 102/54 L Pulse Oximetry 97 Patient up from ED via wheelchair. patient was able to ambulate to bed, gait steady. Patient denies chest pain and sob during admission.
--- NOTE | 2020-06-23 04:19 | P.HP_ITS ---
History of Present Illness History of Present Illness Date Patient Seen: 06/22/20 Time Patient Seen: 22:30 Chief complaint: Chest pain, fatigue Narrative: Rolando Mcmahon is a pleasant 65-year-old male who is very physical active referring to himself as a ?gym rat?. He presented to the emergency department with a 3 week history of chest pressure and pain and more of what he refers to as debilitating fatigue. He states that he has exertional dyspnea. He worked o utside of his house for for 3 hours which then state he stated totally wiped him out. The patient underwent a lumbar diskectomy approximately [address] Villavicencio after having a herniated disc due to a lifting injury. 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 He states previously when he had a knee injury he was laid up for a number of weeks and during that time became deconditioned. He takes very little medications and has a history of hyperlipidemia and was recently initiated on rosuvastatin 5 mg. He uses oxycodone for knee pain and tizanidine for sleep. He denies fever sweats or chills, exposure to infectious or viral illness, denies nausea vomiting, dysuria, diarrhea or constipation, he does have some lower extremity chronic pain as mentioned before. The patient has been worked up in the past for sleep apnea however he was not able to successfully participate in the sleep study due to all the equipment that was hooked up to him. He stated that every time 1 of the leads came off they had to come in interrupt him and that he was not allowed to sleep in his normal sleeping positions during the study. He states that he is known to snore however his is never observed him to stop breathing. In the ED, chest x-ray was negative for any acute process. Temperature 97.5?, blood pressure 102/54, heart rate 56, respiratory rate 18, oxygen saturation 97% on room air, weight 75.2 kg, BMI of 25.9. WBC 6.1, RBC 3.85, hemoglobin 12.5, hematocrit 36.4, platelet count 218, D-dimer was negative, sodium 137, potassium creatinine 0.94, BUN 21, glucose 100, calcium 9.4, totally bilirubin 1.1, AST 38, ALT 31, alk-phos 87, CK MB was 3.3, troponins x2 were both negative, TSH 1.65, and COVID-19 negative. Patient History Medical History BPH (benign prostatic hyperplasia) (Acute) Cervical spine disease (Acute 1979) Chronic back pain (Acute) Compression fracture of L2 (Acute 2012) Depression (Acute) Erectile dysfunction (Acute) Former smoker (Acute) Fractures (Acute) Hearing loss (Acute) Lumbar disc herniation with radiculopathy (Acute) Mild sleep apnea (Acute 2017) Osteoarthritis (Acute) Seasonal allergies (Acute) Shoulder pain (Acute) Tendonitis (Acute) Surgical History (Updated 06/23/20 @ 04:28 by TAPAN Costa) Hx of left inguinal hernia repair (Acute 2009) Hx of right inguinal hernia repair (Acute 1997) Hx of thumb surgery (Acute ~1989) S/P lumbar discectomy (Acute) Status post hernia repair Status post hernia repair Family & Social History Family History (Updated 06/23/20 @ 04:28 by TAPAN Costa) Other Adopted person Social History: household members spouse Prior Living Arrangements House Safety & Behavioral: Feels Safe in Current Yes Environment Been Physically Hurt or No Threatened By a Person Suicidal Ideation Description None Suicide Plan Description No Plan Tobacco & Substance use: Smoking Status Former smoker alcohol intake current alcohol intake frequency bottle of wine daily but has able to discontinue abruptly without adverse effect Substance Use Type marijuana Meds Home Medications and Allergies Home Medications Medication Instructions Recorded Confirmed Type epinephrine [EpiPen 2-Yared] 0.3 mg IJ SEE INSTRUCTIONS #2 ea 11/29/16 06/22/20 Rx melatonin 5 mg tablet 5 mg PO BEDTIME PRN 06/13/18 06/22/20 History meloxicam 15 mg tablet 15 mg PO DAILY 06/13/18 06/22/20 History oxycodone-acetaminophen [Percocet] 1 tab PO Q4H PRN #15 tab 05/28/20 06/22/20 Rx tadalafil [Cialis] 5 mg PO QDAY PRN 05/28/20 06/22/20 History tizanidine 2 mg PO BID PRN 05/28/20 06/22/20 History doxazosin 8 mg PO DAILY 06/22/20 06/22/20 History Allergies Allergy/AdvReac Type Severity Reaction Status Date / Time BEE STING Allergy Severe SWELLING Uncoded 05/28/20 06:54 OF EXTREMITIES 09/12/14 Review of Systems Review of Systems ROS: Yes All systems reviewed with the patient and are negative except as otherwise documented Exam Vital Signs (past 8 hours): - 06/22/20 20:40 06/23/20 00:00 Temperature 97.7 F 97.5 F L Pulse Rate 46 L 56 L Respiratory Rate 17 18 Blood Pressure 121/67 102/54 L Pulse Oximetry 97 97 Oxygen Delivery Method Room Air Oxygen Flow Rate 0 Narrative Exam Narrative: Gen: Alert, oriented, well-developed 65 y.o. male, appears younger than stated age HEENT: normocephalic, atraumatic, conjunctiva clear, sclera non-icteric, oral mucosa pink and moist Neck: supple, full ROM, no JVD, trachea is midline Resp: Lungs CTA, non-labored breathing CV: RRR, no murmur or rubs Abd: soft, non-tender, normoactive BTs Skin: no lesions or rashes, dry and intact Neuro: Alert and oriented X 4 w/no focal deficits. Speech clear and coherent. Extremities: moves all 4 extremities, is ambulatory, negative Romina?s sign Psyche: normal mood and affect. Objective Labs Result Diagrams: 06/22/20 17:50 06/22/20 17:50 Labs: Laboratory Results - last 24 hr 06/22/20 06/22/20 06/22/20 17:50 17:50 17:50 WBC 6.1 RBC 3.85 L Hgb 12.5 L Hct 36.4 L MCV 94.5 MCH 32.3 MCHC 34.2 RDW 12.6 Plt Count 218 Neut % (Auto) 65.6 Lymph % (Auto) 21.3 L Granite % (Auto) 9.3 Eos % (Auto) 2.9 Baso % (Auto) 0.9 Neut # (Auto) 4000 Lymph # (Auto) 1300 Granite # (Auto) 600 Eos # (Auto) 200 Baso # (Auto) 100 PT 12.6 INR 1.1 APTT 31 D-Dimer Sodium 137 Potassium 3.8 Chloride 106 Carbon Dioxide 27 BUN 21 H Creatinine 0.94 Estimated GFR > 60.0 BUN/Creatinine Ratio 22.3 H Glucose 100 Calcium 9.4 Total Bilirubin 1.1 AST 38 ALT 31 Alkaline Phosphatase 57 Total Creatine Kinase 197 H CK-MB (CK-2) 3.30 H CK-MB (CK-2) Rel Index 1.7 Troponin I < 0.012 Total Protein 6.5 Albumin 4.1 Globulin 2.4 Albumin/Globulin Ratio 1.7 Lipase 75 TSH COVID-19 PCR 06/22/20 06/22/20 06/22/20 17:50 17:50 20:00 WBC RBC Hgb Hct MCV MCH MCHC RDW Plt Count Neut % (Auto) Lymph % (Auto) Granite % (Auto) Eos % (Auto) Baso % (Auto) Neut # (Auto) Lymph # (Auto) Granite # (Auto) Eos # (Auto) Baso # (Auto) PT INR APTT D-Dimer < 200 Sodium Potassium Chloride Carbon Dioxide BUN Creatinine Estimated GFR BUN/Creatinine Ratio Glucose Calcium Total Bilirubin AST ALT Alkaline Phosphatase Total Creatine Kinase CK-MB (CK-2) CK-MB (CK-2) Rel Index Troponin I Total Protein Albumin Globulin Albumin/Globulin Ratio Lipase TSH 1.65 COVID-19 PCR Negative 06/22/20 23:53 WBC RBC Hgb Hct MCV MCH MCHC RDW Plt Count Neut % (Auto) Lymph % (Auto) Granite % (Auto) Eos % (Auto) Baso % (Auto) Neut # (Auto) Lymph # (Auto) Granite # (Auto) Eos # (Auto) Baso # (Auto) PT INR APTT D-Dimer Sodium Potassium Chloride Carbon Dioxide BUN Creatinine Estimated GFR BUN/Creatinine Ratio Glucose Calcium Total Bilirubin AST ALT Alkaline Phosphatase Total Creatine Kinase CK-MB (CK-2) CK-MB (CK-2) Rel Index Troponin I < 0.012 Total Protein Albumin Globulin Albumin/Globulin Ratio Lipase TSH COVID-19 PCR Assessment & Plan Assessment & Plan narrative: Rolando Mcmahon will be observed overnight and scheduled for both a nuclear stress test and a echocardiogram. Chest pain, acute, present on admission -2 serial troponins were both negative and the 3rd 1 was discontinued -nuclear stress test in the morning -echocardiogram -fasting lipid panel in the morning -telemetry overnight -nitroglycerine for pain Suspected hyperlipidemia -last lipid panel was done in 2019 and his numbers would not have indicated the need for statin at that time -he will be written for rosuvastatin 5 mg for the time being Chronic right knee pain -he will have his home dose of oxycodone/Tylenol for pain Sleep disorder, chronic -continue home dose of tizanidine for sleep Consults: None Patient is observation status as his stay is not likely to exceed 2 midnights. FEN: Saline lock, NPO after midnight, low sodium diet, BMP and magnesium in the am. VTE prophylaxis: Bilateral SCDs Dispo: Probable discharge to home with outpatient followup Code Status: Full code as discussed with patient Quality VTE Deep Vein Thrombosis/Pulmonary Embolism Present on Admission: No
[2020-06-23 04:59] VITALS: BP 117/63; PULSE 49; RESP 16; TEMP 36.4
[2020-06-23 06:29] LABS: Add Manual Diff / Slide Review NO; Basophils Absolute Auto 0 /uL (0-100); Basophils Percent Auto 0.8 % (0-2); Eosinophils Absolute Auto 200 /uL (0-450); Eosinophils Percent Auto 3.5 % (2-4); Hematocrit 36.2 % (41-53); Hemoglobin 12.4 g/dL (13.5-17.5); Lymphocytes Absolute Auto 1200 /uL (1100-4500); Lymphocytes Percent Auto 24.1 % (25-40); Mean Corpuscular HGB Conc 34.3 % (30-36); Mean Corpuscular Hemoglobin 32.4 PG (26-34); Mean Corpuscular Volume 94.5 fL (80-100); Monocytes Absolute Auto 500 /uL (0-900); Monocytes Percent Auto 9.8 % (3-14); Neutrophils Absolute Auto 3100 /uL (1500-7000); Neutrophils Percent Auto 61.8 % (50-75); Platelet Count 194 X10^3/uL (150-400); Red Blood Cell Count 3.83 X10^6/uL (4.5-5.9); Red Cell Distribution Width 12.5 % (11.6-14.8); White Blood Cell Count 5.1 X10^3/uL (4.5-11.0)
[2020-06-23 06:45] LABS: Alanine Aminotransferase 29 IU/L (<50); Albumin 3.5 g/dL (3.5-5.0); Albumin Globulin Ratio 1.7 (1.0-2.8); Alkaline Phosphatase 49 U/L (38-126); Aspartate Aminotransferase 32 IU/L (17-59); Bilirubin Total 1.3 mg/dL (0.2-1.3); Blood Urea Nitrogen 21 mg/dL (9-20); Calcium 9.4 mg/dL (8.4-10.2); Carbon Dioxide 25 mmol/L (22-32); Chloride 107 mmol/L (98-107); Cholesterol 179 mg/dL (140-199); Estimated Glomerular Filt Rate > 60.0 mL/min (>60); Globulin 2.1 g/dL (1.7-4.1); Glucose 96 mg/dL (80-110); HDL Cholesterol 67 mg/dL (40-60); HEMOLYSIS < 15 (0-50); LDL Cholesterol Calculated 88 mg/dL (<100); Potassium 3.7 mmol/L (3.4-5.1); Sodium 137 mmol/L (137-145); Total Protein 5.6 g/dL (6.3-8.2); Triglycerides 121 mg/dL (35-150)
[2020-06-23 07:58] VITALS: BP 119/71; PULSE 57; RESP 15; TEMP 36.3; O2SAT 96
--- NOTE | 2020-06-23 09:01 | CM.DPC ---
Addendum entered by Diana Sanon R.N. 06/23/20 09:08: note placed in wrong chart in error. Diana Sanon RN Original Note: DCP continued: EMR reviewed: D/C orders placed and Cm/RN called Veronica at [facility] and they can pick patient up at 11:30 AM. Nurse report [place] is [phone] vinod[place] [facility] [place] notified and COVID results, PASRR, D/C summary, SNF Order and medication list faxed to [facility]. PASRR original placed in folder to go to sound view and copy given to Lianna TRINIDAD to scan into patients record. Diana sanon RN
[2020-06-23] MEDS: ASPIRIN EC 81 MG TABLET PO (09:35)
[2020-06-23] MEDS: SODIUM CHLORIDE 0.9% FLUSH 10 ML IV (09:35)
[2020-06-23 11:57] VITALS: BP 116/62; PULSE 56; RESP 15; TEMP 36.4; O2SAT 96
--- NOTE | 2020-06-23 12:15 | PC.NURSE ---
Patient alert, oriented describes discomfort to the center of chest, where my trachea is, it feels like its being squeezed, patient rates 2-3/10. Dr Nj aware. Denies shortness of breath and nausea. Echo complete, patient will have stress test at 1300, remains NPO.
--- NOTE | 2020-06-23 14:07 | CM.DANOTE ---
DCP Assessment: EMR reviewed: Patient is a 65 yr old male who was admitted for Chest pain. Patients PCP is Dr Paiz. Cm/Rn Met with patient at the bedside and explained role. patient was alert and oriented x3. Patient currently lives with his and is Independent with all ADLS and drives at baseline. patient has ECHO today at 11am and a stress test at 1300. once those test come back Dr. Nj stated she would follow up with patient about treatment course. I: medicare and cigna Plan: D/C home when medically stable. No identified D/C planning needs noted at this time. CM department will follow to help assist with any new D/C planning needs that may arise. Diana Baker RN. Discharge Planning/Care Management CM Discharge Assessment Start: 06/23/20 14:05 Freq: Status: Active Protocol: Document 06/23/20 14:05 (Rec: 06/23/20 14:07 [id number]) Discharge Planning Assessment Assigned Human Resources Manager Diana Baker RN DPOA/Assigned Designee Name Zina Lazaro (spouse) Contact Information [phone] Advance Directives? No History Provided By Patient,Medical Record Has Patient been admitted in last 30 No days? Prior Living Arrangements House Household Members spouse Type of transporation used prior to Drives own vehicle admit Independent with ADL's Yes Is patient alert and oriented? Yes Caregiver for Another No DME Already Rented / Owned Cane Comment has a cane but never uses it. Barriers to Discharge No Discharge Plan Home Referrals Initiated None needed Whiteboard Updated in Patient Room with Yes name and ext. # of Human Resources Manager Review Status In Process Next Review Type Continued Stay Review
[2020-06-23 15:56] VITALS: BP 124/67; PULSE 66; RESP 16; TEMP 36.5; O2SAT 96
--- NOTE | 2020-06-23 17:25 | PM.DS.1 ---
History of Present Illness History of Present Illness Date Patient Seen: 06/23/20 Chief complaint: Chest pain, fatigue Narrative: Rolando Mcmahon is a pleasant 65-year-old male who is very physical active referring to himself as a ?gym rat?. He presented to the emergency department with a 3 week history of chest pressure and pain and more of what he refers to as debilitating fatigue. He states that he has exertional dyspnea. He worked outside of his house for for 3 hours which then state he stated totally wiped him out. The patient underwent a lumbar diskectomy approximately [address] Villavicencio after having a herniated disc due to a lifting injury. 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 He states previously when he had a knee injury he was laid up for a number of weeks and during that time became deconditioned. He takes very little medications and has a history of hyperlipidemia and was recently initiated on rosuvastatin 5 mg. He uses oxycodone for knee pain and tizanidine for sleep. He denies fever sweats or chills, exposure to infectious or viral illness, denies nausea vomiting, dysuria, diarrhea or constipation, he does have some lower extremity chronic pain as mentioned before. The patient has been worked up in the past for sleep apnea however he was not able to successfully participate in the sleep study due to all the equipment that was hooked up to him. He stated that every time 1 of the leads came off they had to come in interrupt him and that he was not allowed to sleep in his normal sleeping positions during the study. He states that he is known to snore however his is never observed him to stop breathing. In the ED, chest x-ray was negative for any acute process. Temperature 97.5?, blood pressure 102/54, heart rate 56, respiratory rate 18, oxygen saturation 97% on room air, weight 75.2 kg, BMI of 25.9. WBC 6.1, RBC 3.85, hemoglobin 12.5, hematocrit 36.4, platelet count 218, D-dimer was negative, sodium 137, potassium creatinine 0.94, BUN 21, glucose 100, calcium 9.4, totally bilirubin 1.1, AST 38, ALT 31, alk-phos 87, CK MB was 3.3, troponins x2 were both negative, TSH 1.65, and COVID-19 negative. Discharge Providers Provider Date of admission: 06/22/20 19:57 Discharge Date: 06/23/20 Primary care physician: Greg Paiz MD Discharge provider: Maria Dolores Nj MD Summary Hospital Course Discharge Diagnosis: 1. Chest pain etiology unclear, no evidence to suggest ischemia 2. Probable sleep apnea 3. Fatigue Hospital Course: Patient is a 65-year-old male who was admitted to the hospital for fatigue and chest discomfort. Patient states his symptoms began a week ago which is 3 weeks status post lumbar laminectomy. He feels some pressure in his chest area. It has persisted. He had cardiac enzymes which were negative. Patient had an EKG which was negative. He underwent a stress test which was normal. The patient had a cardiac echo which showed normal LV function ejection fraction 60 65% mild tricuspid regurgitation and mild moderate Mitral Regurgitation. It was felt that the patient's symptoms could not be explained by coronary ischemia. However the patient was recommended to follow-up with Dr. Paiz for consideration of upper endoscopy for further evaluation. In addition the patient was advised to follow-up with Dr. Aems regarding an outpatient sleep study. Patient was deemed appropriate for discharge to discharge home accordingly. Status at Discharge Cognitive/behavioral status at discharge: oriented Functional status at discharge: independent ambulation Overall status at discharge: patient is back to baseline Time Spent with Patient Time spent: Less than 30 minutes Exam Vital Signs (past 8 hours): - 06/23/20 11:57 06/23/20 15:56 Temperature 97.6 F 97.7 F Pulse Rate 56 L 66 Respiratory Rate 15 16 Blood Pressure 116/62 124/67 Pulse Oximetry 96 96 Oxygen Delivery Method Room Air Oxygen Flow Rate 0 Narrative Exam Narrative: Pleasant gentleman in no acute distress Lungs: Clear to auscultation Cardiac exam: Regular rate and rhythm normal S1-S2 Abdomen: Soft nontender nondistended Extremities: No edema Objective Labs Result Diagrams: 06/23/20 06:14 06/23/20 06:14 Labs: Laboratory Results - last 24 hr 06/22/20 06/22/20 06/22/20 17:50 17:50 17:50 WBC 6.1 RBC 3.85 L Hgb 12.5 L Hct 36.4 L MCV 94.5 MCH 32.3 MCHC 34.2 RDW 12.6 Plt Count 218 Neut % (Auto) 65.6 Lymph % (Auto) 21.3 L Sampson % (Auto) 9.3 Eos % (Auto) 2.9 Baso % (Auto) 0.9 Neut # (Auto) 4000 Lymph # (Auto) 1300 Sampson # (Auto) 600 Eos # (Auto) 200 Baso # (Auto) 100 PT 12.6 INR 1.1 APTT 31 D-Dimer Sodium 137 Potassium 3.8 Chloride 106 Carbon Dioxide 27 BUN 21 H Creatinine 0.94 Estimated GFR > 60.0 BUN/Creatinine Ratio 22.3 H Glucose 100 Calcium 9.4 Magnesium Total Bilirubin 1.1 AST 38 ALT 31 Alkaline Phosphatase 57 Total Creatine Kinase 197 H CK-MB (CK-2) 3.30 H CK-MB (CK-2) Rel Index 1.7 Troponin I < 0.012 Total Protein 6.5 Albumin 4.1 Globulin 2.4 Albumin/Globulin Ratio 1.7 Triglycerides Cholesterol LDL Cholesterol, Calc HDL Cholesterol Lipase 75 TSH COVID-19 PCR 06/22/20 06/22/20 06/22/20 17:50 17:50 20:00 WBC RBC Hgb Hct MCV MCH MCHC RDW Plt Count Neut % (Auto) Lymph % (Auto) Sampson % (Auto) Eos % (Auto) Baso % (Auto) Neut # (Auto) Lymph # (Auto) Sampson # (Auto) Eos # (Auto) Baso # (Auto) PT INR APTT D-Dimer < 200 Sodium Potassium Chloride Carbon Dioxide BUN Creatinine Estimated GFR BUN/Creatinine Ratio Glucose Calcium Magnesium Total Bilirubin AST ALT Alkaline Phosphatase Total Creatine Kinase CK-MB (CK-2) CK-MB (CK-2) Rel Index Troponin I Total Protein Albumin Globulin Albumin/Globulin Ratio Triglycerides Cholesterol LDL Cholesterol, Calc HDL Cholesterol Lipase TSH 1.65 COVID-19 PCR Negative 06/22/20 06/23/20 06/23/20 23:53 06:14 06:14 WBC 5.1 RBC 3.83 L Hgb 12.4 L Hct 36.2 L MCV 94.5 MCH 32.4 MCHC 34.3 RDW 12.5 Plt Count 194 Neut % (Auto) 61.8 Lymph % (Auto) 24.1 L Sampson % (Auto) 9.8 Eos % (Auto) 3.5 Baso % (Auto) 0.8 Neut # (Auto) 3100 Lymph # (Auto) 1200 Sampson # (Auto) 500 Eos # (Auto) 200 Baso # (Auto) 0 PT INR APTT D-Dimer Sodium 137 Potassium 3.7 Chloride 107 Carbon Dioxide 25 BUN 21 H Creatinine 0.84 Estimated GFR > 60.0 BUN/Creatinine Ratio 25.0 H Glucose 96 Calcium 9.4 Magnesium 2.0 Total Bilirubin 1.3 AST 32 ALT 29 Alkaline Phosphatase 49 Total Creatine Kinase CK-MB (CK-2) CK-MB (CK-2) Rel Index Troponin I < 0.012 Total Protein 5.6 L Albumin 3.5 Globulin 2.1 Albumin/Globulin Ratio 1.7 Triglycerides 121 Cholesterol 179 LDL Cholesterol, Calc 88 HDL Cholesterol 67 H Lipase TSH COVID-19 PCR Discharge Assessment & Plan Assessment and Plan Assessment: 1. Chest pain 2. Fatigue 3. Probable sleep apnea Plan of Treatment: Discharge Follow-up with Dr. Paiz Outpatient sleep study Discharge Plan Discharge Plan Discharge Problem: Chest pain Patient Disposition: Home Discharge orders & Medications Prescriptions: Continued epinephrine [EpiPen 2-Yared] 0.3 MG/0.3 ML auto-injector 0.3 mg IJ SEE INSTRUCTIONS Qty: 2 RF: 0 tizanidine 2 mg Tablet 2 mg PO BID PRN (Reason: Pain (Scale Score 1-3)) RF: 0 tadalafil [Cialis] 5 MG tablet 5 mg PO QDAY PRN (Reason: prn) RF: 0 oxycodone-acetaminophen [Percocet] 5-325 mg tablet 1 tab PO Q4H PRN (Reason: pain) Qty: 15 RF: 0 doxazosin 8 MG tablet 8 mg PO DAILY RF: 0 melatonin 5 mg tablet 5 mg PO BEDTIME PRN (Reason: Pain (Scale Score 4-6)) RF: 0 meloxicam 15 mg tablet 15 mg PO DAILY RF: 0 Follow up/Referrals: Greg Paiz MD [Primary Care Provider] - Discharge Health Status Multidrug resistant organism: No MDRO Diet/Activity/Treatments Diet: Diet as Tolerated Activity: as tolerated Discharge Data Primary Care Provider: Greg Paiz V Attending Provider: Vangie Kaufman Admit Date/Time: 06/22/20 19:57 Quality VTE Deep Vein Thrombosis/Pulmonary Embolism Present on Admission: No
--- NOTE | 2020-06-23 18:07 | PC.NURSE ---
Discharge Note- Patient discharged home per MD. Reviewed and signed discharge instructions and educations with patient. Tele removed. IV line removed and bandaid applied. Patient packed up all personal belongings and dressed. Patient taken out via wheelchair to private car by JAEL.
== END 2020-06-23 18:07 | disposition home or self-care (01) ==
LOC: ED 19:11 → AC 19:58
PROVIDERS: Emergency Medicine; Admitting Provider Nurse Practitioner Family; Emergency Provider Emergency Medicine; PCP Internal Medicine; Referring Provider Internal Medicine; Visit Provider Nurse Practitioner Family
DX: R06.02 Shortness of breath (principal); Z11.59 Encounter for screening for other viral diseases; R53.83 Other fatigue
CPT/HCPCS: 36415; 71045; 78451; 80053; 80061; 82550; 82553; 83690; 83735; 84443; 84484; 85025; 85379; 85610; 85730; 87635; 93005; 93017; 93306; 99284; G0378; A9502

== ENCOUNTER 2020-08-04 15:32 | Emergency (ER) | payer MEDICARE, OTHER, SELFPAY ==
[2020-06-22 22:20] VITALS: BMI 25.9
[2020-08-04 15:35] VITALS: BP 144/69; PULSE 71; RESP 14; TEMP 37; O2SAT 93; BMI 25.0
--- NOTE | 2020-08-04 15:39 | DI.RAD.S_ITS ---
PROCEDURE: XR FINGER LT MIN 2V INDICATIONS: caught index finger in drill TECHNIQUE: AP hand, 2 views of the 2nd finger(s) acquired. COMPARISON: , LEVON, SWETA RT, 09/12/2014, 10:01. FINDINGS: Bones: No fractures or dislocations. No suspicious bony lesions. Remote ulnar styloid fracture. Soft tissues: No suspicious soft tissue calcifications. There is a soft tissue defect at the tip of the 2nd digit. IMPRESSION: 1. Soft tissue defect at the tip of the 2nd digit without underlying fracture or foreign body. Dictated by: Mae Green M.D. on 08/04/2020 at 15:12 Approved by: Mae Green M.D. on 08/04/2020 at 15:16
[2020-08-04] MEDS: IBUPROFEN 400 MG TABLET PO (16:16)
[2020-08-04] MEDS: ACETAMINOPHEN 325 MG TABLET 650 MG PO (16:17)
[2020-08-04] MEDS: BACITRACIN OINT 0.9 GM PCKT 1 APPLIC TOP (16:18)
[2020-08-04] MEDS: LIDO 1%/SOD BICARB 8.4% (10ML) 10 ML SYRINGE INJ (16:18)
[2020-08-04 17:17] VITALS: BP 139/67; PULSE 56; O2SAT 96
--- NOTE | 2020-08-04 17:54 | ED_ITS ---
HPI - Extremity Injury (Upper) <TAPAN Brooks - Last Filed: 08/05/20 00:29> General Chief Complaint: Extremity Injury, Upper Stated Complaint: cut left index finger Time Seen by Provider: 08/04/20 15:42 Source: patient Mode of arrival: Ambulatory Limitations: no limitations History of Present Illness HPI narrative: This is a 65-year-old male, former smoker, who presents to ED with significant other with non dominant hand left index finger injury from an electric drill before coming into ED. patient states he was drilling a concrete and when he looked away he accidentally drilled affected finger. Patient reports intact sensation and is able to move his finger and reports significant pain. Patient's last tetanus immunization was 2018. No significant active bleeding. Related Data Home Medications Medication Instructions Recorded Confirmed melatonin 5 mg tablet 5 mg PO BEDTIME PRN 06/13/18 06/22/20 meloxicam 15 mg tablet 15 mg PO DAILY 06/13/18 06/22/20 tadalafil [Cialis] 5 mg PO QDAY PRN 05/28/20 06/22/20 tizanidine 2 mg PO BID PRN 05/28/20 06/22/20 doxazosin 8 mg PO DAILY 06/22/20 06/22/20 Previous Rx's Medication Instructions Recorded epinephrine [EpiPen 2-Yared] 0.3 mg IJ SEE INSTRUCTIONS #2 ea 11/29/16 oxycodone-acetaminophen [Percocet] 1 tab PO Q4H PRN #15 tab 05/28/20 oxycodone 5 mg PO BID PRN #5 tab 08/04/20 Allergies Allergy/AdvReac Type Severity Reaction Status Date / Time BEE STING Allergy Severe SWELLING Uncoded 05/28/20 06:54 OF EXTREMITIES 09/12/14 Review of Systems <TAPAN Brooks - Last Filed: 08/05/20 00:29> Review of Systems Narrative: General: Denies fever, chills, fatigue, malaise, sweats. Respiratory: Denies dyspnea, cough, wheezing, hemoptysis, sputum. Cardiovascular: Denies chest pain, palpitations, orthopnea, edema. Musculoskeletal: Denies weakness, joint pain or bony pain. Skin: See HPI Patient History <TAPAN Brooks - Last Filed: 08/05/20 00:29> Medical History BPH (benign prostatic hyperplasia) (Acute) Cervical spine disease (Acute 1979) Chronic back pain (Acute) Compression fracture of L2 (Acute 2012) Depression (Acute) Erectile dysfunction (Acute) Former smoker (Acute) Fractures (Acute) Hearing loss (Acute) Lumbar disc herniation with radiculopathy (Acute) Mild sleep apnea (Acute 2017) Osteoarthritis (Acute) Seasonal allergies (Acute) Shoulder pain (Acute) Tendonitis (Acute) Surgical History Hx of left inguinal hernia repair (Acute 2009) Hx of right inguinal hernia repair (Acute 1997) Hx of thumb surgery (Acute ~1989) S/P lumbar discectomy (Acute) Status post hernia repair Status post hernia repair Family History Other Adopted person Social History household members: spouse Smoking Status: Former smoker alcohol intake: current Smoking Status: Former smoker tobacco type: cigarettes alcohol intake frequency: 3 or more drinks per day Alcohol type: wine Substance Use Type: marijuana Exam <TAPAN Brooks - Last Filed: 08/05/20 00:29> Narrative Exam Narrative: General appearance: well developed, well nourished, in no acute distress. Head: normocephalic, atraumatic, no scalp lesions, non-tender. ENT: Hearing grossly intact. Airway patent. Neck/Thyroid: neck supple, full range of motion, no visible masses or meningeal signs. No JVD, non-tender without lymphadenopathy. Skin: Half circular shaped laceration on distal left index finger pad. No active bleeding. Heart: no clubbing, no cyanosis, no edema. S1 and S2 normal. RRR w/o murmurs, clicks, or bruits. Lungs: Breathing even and unlabored. No stridor. No accessory muscles used. Able to speak in full sentences. Chest: normal shape and expansion. Abdomen: non-obese, non-distended. Neurologic: alert and oriented. Cognitive exam, DEVELOPMENT SCIENTIST and PNS grossly intact on informal exam. Psych: good eye contact, normal affect. Initial Vital Signs Initial Vital Signs: Vital Signs Temperature 98.6 F 08/04/20 15:35 Pulse Rate 71 08/04/20 15:35 Respiratory Rate 14 08/04/20 15:35 Blood Pressure 144/69 H 08/04/20 15:35 Pulse Oximetry 93 08/04/20 15:35 Extrem Left upper extremity: hand Details: neuromotor exam normal, neurosensory exam normal, tendon exam normal, tenderness, vascular exam Details: radial pulse present and normal capillary refill, normal ROM of fingers and laceration (Dista l index finger pad not involving nail) <Latoya Han MD - Last Filed: 08/05/20 07:24> Initial Vital Signs Initial Vital Signs: Vital Signs Temperature 98.6 F 08/04/20 15:35 Pulse Rate 71 08/04/20 15:35 Respiratory Rate 14 08/04/20 15:35 Blood Pressure 144/69 H 08/04/20 15:35 Pulse Oximetry 93 08/04/20 15:35 Procedures <TAPAN Brooks - Last Filed: 08/05/20 00:29> Laceration Repair Laceration 1: Side (If applicable): left (Index finger) Size (cm): 2 Description: flap Depth: simple, single layer Local Anesthetic: lidocaine 1% and with bicarb Amount of anesthesia used (mL): 2 (Digital block) Pre-repair: wound explored, irrigated extensively and wound margins revised Skin layer closed with: nylon Size (cm): 4-0 Number of sutures: 4 Technique: simple, interrupted Orthopedic Splinting/Casting Injury #1: Side: left Upper Extremity Injury Location: finger Upper Extremity Immobilizer: aluminum form splint Post splinting neuro exam: intact Post splinting vascular exam: other (Finger tip covered by gauze after the laceration suture repair) Placed by: Nursing Scores <TAPAN Brooks - Last Filed: 08/05/20 00:29> GCS [place] coma scale eye opening: Spontaneous Santos coma scale verbal response: Orientated [place] coma scale motor response: Obey commands Santos coma scale total score: 15 Course <TAPAN Brooks - Last Filed: 08/05/20 00:29> Orders Ordered: Discontinued Medications Acetaminophen (Tylenol) 650 mg PO NOW ONE Stop: 08/04/20 16:09 Last Admin: 08/04/20 16:17 Dose: 650 mg Documented by: CARMENCITA Bacitracin (Bacitracin) 1 applic TOP NOW ONE Stop: 08/04/20 16:05 Last Admin: 08/04/20 16:18 Dose: 1 applic Documented by: CARMENCITA Ibuprofen (Advil) 400 mg PO NOW ONE Stop: 08/04/20 16:09 Last Admin: 08/04/20 16:16 Dose: 400 mg Documented by: CARMENCITA Lidocaine/Sodium Bicarbonate (Buffered Lidocaine 10 Ml Syr) 10 ml INJ NOW ONE Stop: 08/04/20 16:05 Last Admin: 08/04/20 16:18 Dose: 10 ml Documented by: CARMENCITA Vital Signs Vital signs: Vital Signs - 8 hr 08/04/20 17:17 Pulse Rate 56 L Blood Pressure 139/67 Pulse Oximetry 96 <Latoya Han MD - Last Filed: 08/05/20 07:24> Orders Ordered: Discontinued Medications Acetaminophen (Tylenol) 650 mg PO NOW ONE Stop: 08/04/20 16:09 Last Admin: 08/04/20 16:17 Dose: 650 mg Documented by: CARMENCITA Bacitracin (Bacitracin) 1 applic TOP NOW ONE Stop: 08/04/20 16:05 Last Admin: 08/04/20 16:18 Dose: 1 applic Documented by: CARMENCITA Ibuprofen (Advil) 400 mg PO NOW ONE Stop: 08/04/20 16:09 Last Admin: 08/04/20 16:16 Dose: 400 mg Documented by: CARMENCITA Lidocaine/Sodium Bicarbonate (Buffered Lidocaine 10 Ml Syr) 10 ml INJ NOW ONE Stop: 08/04/20 16:05 Last Admin: 08/04/20 16:18 Dose: 10 ml Documented by: CARMENCITA Vital Signs Vital signs: Vital Signs - 8 hr 08/04/20 17:17 Pulse Rate 56 L Blood Pressure 139/67 Pulse Oximetry 96 MDM - Extremity Injury (Upper) <TAPAN Brooks - Last Filed: 08/05/20 00:29> Differential Diagnosis Differential diagnosis: Likely other (Finger laceration, open fracture) Medical Records Attestation: I reviewed the patient's medical records. Imaging Data XR-index finer LT: Radiologist's Impression: [address] [address] XRay Report Signed Patient: Rolando Mcmahon [facility]#: [id number] : 3Acct:[id number] Age/Sex: 65 / MDate of Service: 08/04/20 Loc: ED Accession Number: [id number] Procedure: XR finger LT min 2V Ordering Provider: Latoya Han MD PROCEDURE: XR FINGER LT MIN 2V INDICATIONS: caught index finger in drill TECHNIQUE: AP hand, 2 views of the 2nd finger(s) acquired. COMPARISON: [facility], CR, FINGER RT, 09/12/2014, 10:01. FINDINGS: Bones: No fractures or dislocations. No suspicious bony lesions. Remote ulnar styloid fracture. Soft tissues: No suspicious soft tissue calcifications. There is a soft tissue defect at the tip of the 2nd digit. IMPRESSION: 1. Soft tissue defect at the tip of the 2nd digit without underlying fracture or foreign body. Dictated by: Mae Green M.D. on 08/04/2020 at 15:12 Approved by: Mae Green M.D. on 08/04/2020 at 15:16 [facility] Narrative Medical decision making narrative: This is a 65 year male who presents to ED with left index distal finger pad injury and flap like laceration from a drill before coming into ED. patient's tetanus immunization was updated last year. Patient has intact sensation and circulation on affected finger with intact flexion and extension of her. Laceration has been repaired with suture. Please see procedure note. Dressing is applied on affected finger and patient provided finger splint to use it to protect wound the laceration from tomorrow. Return precautions including wound care, pain management, monitor for infection, suture removal, wound recheck with patient and he verbalized understanding and agreement with the treatment plan. Patient reports pain was very severe when he arrived to ED before nerve block was done and states regular Tylenol and Motrin does not usually work for pain. Patient provided with a small dose of oxycodone to use as needed for severe pain and advised to use [id number] Tylenol and continue with his meloxicam. Discharge Plan Departure Patient Disposition: Home Clinical Impression: Finger laceration Qualifiers: Encounter type: initial encounter Finger: middle finger Damage to nail status: without damage Foreign body presence: without foreign body Laterality: left Qualified Code(s): S61.213A - Laceration without foreign body of left middle finger without damage to nail, initial encounter Discharge Date/Time: 08/04/20 17:18 Instructions: DI for Laceration Repair -- Finger Activity Restrictions/Additional Instructions: You have been diagnosed with [left index finger non dominant hand laceration in finger pad from a drill. No fracture or foreign body was appreciated x-ray test]. What to do: *Take your medications as directed. Please take [id number] Tylenol for discomfort. Tylenol 650-1000 mg as needed for pain up to 3 to 4 times a day. A few tabs of Oxycodone has been transmitted to [facility] for severe pain and please take precautions of narcotic pain medications and do not drive, drink alcohol or operate any heavy equipments. Please do not get your wound soaked in the water until suture removal. Keep your dressing intact for next 24 hrs. After then, you could remove your dressing, wash with soap and water. Pat dry with clean paper towel and dress it with antibiotic ointment. You can change dressing as needed and daily. Please monitor for signs and symptoms for infection such as increasing redness, swelling, warmth, pain, fever, purulent discharge. If this occurs, please return to ED or follow up with your primary care physician since your wound may be gotten infected. Please follow up with your primary care provider in 2-3 days for recheck wound. Your suture should be removed [ 7-10 ] days. This can be done by your primary provider, walk-in clinic or here in ED. Please keep your wound clean, dry and intact all times. *Follow up with your primary care provider in 2-3 days, call for an appointment. Let them know you were seen in the ED and that we asked you to be seen in follow up. *Return to ED if you have any new, worsening, or concerning symptoms, such as [chest pain, breathing difficulty, unable to tolerate fluids, signs and symptoms for infection as above, fever, or any acute concerns]. Prescriptions: New oxycodone 5 mg tablet 5 mg PO BID PRN (Reason: pain) Qty: 5 RF: 0 No Action epinephrine [EpiPen 2-Yared] 0.3 MG/0.3 ML auto-injector 0.3 mg IJ SEE INSTRUCTIONS Qty: 2 RF: 0 tizanidine 2 mg Tablet 2 mg PO BID PRN (Reason: Pain (Scale Score 1-3)) RF: 0 tadalafil [Cialis] 5 MG tablet 5 mg PO QDAY PRN (Reason: prn) RF: 0 oxycodone-acetaminophen [Percocet] 5-325 mg tablet 1 tab PO Q4H PRN (Reason: pain) Qty: 15 RF: 0 doxazosin 8 MG tablet 8 mg PO DAILY RF: 0 melatonin 5 mg tablet 5 mg PO BEDTIME PRN (Reason: Pain (Scale Score 4-6)) RF: 0 meloxicam 15 mg tablet 15 mg PO DAILY RF: 0 Referrals: Greg Paiz MD [Primary Care Provider] - <Latoya Han MD - Last Filed: 08/05/20 07:24> [facility]: I was immediately available in the department for consultation throughout this patient's visit. I agree with documentation as above. Latoya Han MD
== END 2020-08-04 17:18 | disposition home or self-care (01) ==
PROVIDERS: Emergency Provider Nurse Practitioner Family; PCP Internal Medicine
DX: S61.213A Laceration without foreign body of left middle finger without damage to nail, initial encounter (principal); W31.89XA Contact with other specified machinery, initial encounter
CPT/HCPCS: 12001; 73140; 99283; 99284

== ENCOUNTER → 2021-02-23 18:42 | Outpatient (ROUT) | payer MEDICARE, OTHER, SELFPAY ==
[2020-06-22 22:20] VITALS: BMI 25.9
[2021-02-23 19:16] LABS: Add Manual Diff / Slide Review NO; Basophils Absolute Auto 0 /uL (0-100); Basophils Percent Auto 0.5 % (0-2); Eosinophils Absolute Auto 200 /uL (0-450); Eosinophils Percent Auto 2.8 % (2-4); Hematocrit 39.9 % (41-53); Hemoglobin 13.8 g/dL (13.5-17.5); Lymphocytes Absolute Auto 1300 /uL (1100-4500); Mean Corpuscular HGB Conc 34.6 % (30-36); Mean Corpuscular Hemoglobin 32.7 PG (26-34); Mean Corpuscular Volume 94.7 fL (80-100); Monocytes Absolute Auto 600 /uL (0-900); Monocytes Percent Auto 10.5 % (3-14); Neutrophils Absolute Auto 3800 /uL (1500-7000); Neutrophils Percent Auto 64.2 % (50-75); Platelet Count 207 X10^3/uL (150-400); Red Blood Cell Count 4.22 X10^6/uL (4.5-5.9); White Blood Cell Count 5.9 X10^3/uL (4.5-11.0)
[2021-02-23 19:24] LABS: Alanine Aminotransferase 28 IU/L (<50); Albumin 4.4 g/dL (3.5-5.0); Albumin Globulin Ratio 1.8 (1.0-2.8); Alkaline Phosphatase 70 U/L (38-126); Aspartate Aminotransferase 39 IU/L (17-59); BUN Creatinine Ratio 30.5 (6-22); Bilirubin Total 1.4 mg/dL (0.2-1.3); Blood Urea Nitrogen 29 mg/dL (9-20); Carbon Dioxide 27 mmol/L (22-32); Chloride 106 mmol/L (98-107); Estimated Glomerular Filt Rate > 60.0 mL/min (>60); Globulin 2.5 g/dL (1.7-4.1); Glucose 98 mg/dL (80-110); HEMOLYSIS < 15 (0-50); Potassium 4.2 mmol/L (3.4-5.1); Sodium 140 mmol/L (137-145); Total Protein 6.9 g/dL (6.3-8.2)
[2021-02-23 19:54] LABS: TSH w/ Reflex to FT4 2.98 uIU/mL (0.47-4.68)
== END ==
PROVIDERS: PCP Internal Medicine; Visit Provider Internal Medicine
DX: R53.83 Other fatigue (principal)
CPT/HCPCS: 80053; 84443; 85025

== ENCOUNTER → 2021-11-24 18:09 | Outpatient (CLI) | payer MEDICARE, BC, SELFPAY ==
[2020-06-22 22:20] VITALS: BMI 25.9
--- NOTE | 2021-11-24 | DI.MRI.S_ITS ---
PROCEDURE: MR KNEE RT WO CON INDICATIONS: RIGHT KNEE PAIN TECHNIQUE: Noncontrast sagittal PD fast spin echo and T2 fast spin echo with fat saturation, sagittal 3-D FLASH with fat saturation; coronal T1 spin echo and PD fast spin echo with fat saturation, and axial PD fast spin echo with fat saturation through the knee. COMPARISON: [facility], MR, MR KNEE RT WO CON, 06/18/2020, 19:19. FINDINGS: Image quality: Excellent. Menisci: There is linear oblique and horizontal high signal intensity within the medial meniscal body and posterior horn, demonstrating inferior articular surface extension, indicating complex tearing, which has progressed slightly. Partial detachment of the lateral meniscus. Amorphous high signal intensity within the lateral meniscal body and posterior horn, demonstrating superior and inferior articular surface extension, indicating degenerative tearing, which appears similar. Truncation of the free edge of the posterior horn lateral meniscus, indicating radial tearing versus postsurgical sequelae, as before. Cruciate ligaments: The anterior cruciate ligament is intact. There is mild T2 signal elevation along the course of the anterior cruciate ligament, as before, consistent with myxoid degeneration. There is increased, moderate grade tearing of the posterior cruciate ligament diffusely. Medial structures: The medial collateral ligament appears intact. Visualized portions of the pes anserinus tendons appear normal. No abnormal bursal fluid. Lateral structures: The lateral collateral ligament, long and short heads of the biceps femoris tendon appear intact. The popliteus tendon appears normal. Iliotibial band appears normal. Anterior structures: The quadriceps and patellar tendons appear intact. Patellar alignment is normal. No femoral trochlear dysplasia or ventral trochlear prominence. No edema in the infrapatellar fat pad. Curvilinear low proton density signal within the infrapatellar fat pad, suggestive of prior surgery. Bones and cartilage: No bone marrow contusions or fractures. There is mild ill-defined degenerative marrow edema within the central and lateral tibial plateau, as well as the weight-bearing aspect of the medial femoral condyle. Moderate tricompartmental periarticular osteophyte formation. Severe articular cartilage loss overlies the weight-bearing aspects of the medial and lateral compartments. Mild articular cartilage loss diffusely overlies the medial and lateral patellar facets as well as the medial and lateral femoral trochlea. The cartilage of the medial and lateral femorotibial compartments, as well as the patellofemoral compartment, appears normal in thickness. Joint space: There is a small knee joint effusion with a few scattered small, subcentimeter intra-articular loose bodies. No Doe's cyst. Normal appearing synovial plicae are incidentally noted. IMPRESSION: 1. Tricompartmental osteoarthritis with associated articular cartilage loss. 2. Partial-thickness tearing of the posterior cruciate ligament. 3. Myxoid degeneration of the anterior cruciate ligament. 4. Medial and lateral meniscal tearing. Possible postsurgical sequelae involving the lateral meniscus. Partial detachment of the lateral meniscus. Dictated by: Dylon Dorsey M.D. on 11/25/2021 at 8:34 Approved by: Dylon Dosrey M.D. on 11/25/2021 at 8:39
== END ==
PROVIDERS: PCP Internal Medicine; Referring Provider Orthopaedic Surgery; Visit Provider Orthopaedic Surgery
DX: S83.521A Sprain of posterior cruciate ligament of right knee, initial encounter (principal); S83.241A Other tear of medial meniscus, current injury, right knee, initial encounter; S83.281A Other tear of lateral meniscus, current injury, right knee, initial encounter; M25.861 Other specified joint disorders, right knee; M17.11 Unilateral primary osteoarthritis, right knee
CPT/HCPCS: 73721

== ENCOUNTER → 2022-02-17 09:50 | Outpatient (CLI) | payer MEDICARE, BC, SELFPAY ==
[2020-06-22 22:20] VITALS: BMI 25.9
--- NOTE | 2022-02-17 09:56 | DI.RAD.S_ITS ---
PROCEDURE: XR CHEST 2V INDICATIONS: COUGH TECHNIQUE: 2 views of the chest were acquired. COMPARISON: [facility], CR, XR CHEST 1V, 06/22/2020, 17:35. FINDINGS: Surgical changes and devices: None. Lungs and pleura: Coarsened interstitial markings. No consolidation, pleural effusions or pneumothorax. Mediastinum: Mediastinal contours are normal. Heart size is normal. Bones and chest wall: No suspicious bony abnormalities. Soft tissues appear unremarkable. IMPRESSION: No acute cardiopulmonary abnormality. Dictated by: Benedict Miller M.D. on 02/17/2022 at 11:40 Approved by: Benedict Miller M.D. on 02/17/2022 at 11:41
== END ==
PROVIDERS: PCP Internal Medicine; Referring Provider Internal Medicine; Visit Provider Internal Medicine
DX: R05.9 Cough, unspecified (principal)
CPT/HCPCS: 71046

== ENCOUNTER → 2022-07-22 07:50 | Outpatient (CLI) | payer MEDICARE, BC, SELFPAY ==
[2020-06-22 22:20] VITALS: BMI 25.9
[2022-07-22 08:41] LABS: Add Manual Diff / Slide Review NO; Basophils Absolute Auto 0 /uL (0-100); Basophils Percent Auto 0.8 % (0-2); Eosinophils Absolute Auto 100 /uL (0-450); Eosinophils Percent Auto 2.3 % (2-4); Hematocrit 38.8 % (41-53); Lymphocytes Absolute Auto 1200 /uL (1100-4500); Lymphocytes Percent Auto 23.1 % (25-40); Mean Corpuscular HGB Conc 33.5 % (30-36); Mean Corpuscular Hemoglobin 32.4 PG (26-34); Mean Corpuscular Volume 96.7 fL (80-100); Monocytes Absolute Auto 400 /uL (0-900); Monocytes Percent Auto 8.6 % (3-14); Neutrophils Absolute Auto 3300 /uL (1500-7000); Neutrophils Percent Auto 65.2 % (50-75); Platelet Count 181 X10^3/uL (150-400); Red Blood Cell Count 4.02 X10^6/uL (4.5-5.9); Red Cell Distribution Width 12.4 % (11.6-14.8); White Blood Cell Count 5.1 X10^3/uL (4.5-11.0)
[2022-07-22 09:30] LABS: Hemoglobin A1C% w Est Avg Glu 4.5 % (4.0-6.0)
[2022-07-22 09:57] LABS: BUN Creatinine Ratio 19.6 (6-22); Blood Urea Nitrogen 20 mg/dL (9-20); Calcium 9.5 mg/dL (8.4-10.2); Carbon Dioxide 28 mmol/L (22-32); Chloride 104 mmol/L (98-107); Estimated Glomerular Filt Rate > 60 mL/min (>60); Glucose 95 mg/dL (80-110); HEMOLYSIS < 15 (0-50); Potassium 4.2 mmol/L (3.4-5.1); Sodium 139 mmol/L (137-145)
== END ==
PROVIDERS: PCP Internal Medicine; Referring Provider Orthopaedic Surgery; Visit Provider Orthopaedic Surgery
DX: Z01.818 Encounter for other preprocedural examination (principal); R73.9 Hyperglycemia, unspecified; Z01.812 Encounter for preprocedural laboratory examination
CPT/HCPCS: 36415; 80048; 83036; 85025; 93005; 93010

== ENCOUNTER → 2022-08-22 10:02 | Outpatient (CLI) | payer MEDICARE, OTHER, SELFPAY ==
[2020-06-22 22:20] VITALS: BMI 25.9
[2022-08-22 12:37] LABS: COVID19 -Nasal RAPID Negative (Negative)
== END ==
PROVIDERS: PCP Internal Medicine; Referring Provider Orthopaedic Surgery; Visit Provider Orthopaedic Surgery
DX: Z20.822 Contact with and (suspected) exposure to COVID-19 (principal)
CPT/HCPCS: 87635; C9803

== ENCOUNTER → 2022-08-26 10:08 | Outpatient (CLI) | payer MEDICARE, OTHER, SELFPAY ==
[2020-06-22 22:20] VITALS: BMI 25.9
[2022-08-26 10:42] LABS: COVID19 -Nasal RAPID Negative (Negative)
== END ==
PROVIDERS: PCP Internal Medicine; Referring Provider Orthopaedic Surgery; Visit Provider Orthopaedic Surgery
DX: Z20.822 Contact with and (suspected) exposure to COVID-19 (principal)
CPT/HCPCS: 87635; C9803

== ENCOUNTER → 2022-09-09 10:16 | Outpatient (CLI) | payer MEDICARE, OTHER, SELFPAY ==
[2020-06-22 22:20] VITALS: BMI 25.9
[2022-09-09 12:23] LABS: COVID19 -Nasal RAPID Negative (Negative)
== END ==
PROVIDERS: PCP Internal Medicine; Referring Provider Orthopaedic Surgery; Visit Provider Orthopaedic Surgery
DX: Z20.822 Contact with and (suspected) exposure to COVID-19 (principal)
CPT/HCPCS: 87635; C9803

== ENCOUNTER 2022-09-12 06:21 | Day surgery (SDC) | payer MEDICARE, OTHER, SELFPAY ==
[2020-06-22 22:20] VITALS: BMI 25.9
[2022-09-09 07:42] VITALS: BMI 25.0
[2022-09-12] VITALS (11 sets, daily range): BP systolic 111–132; BP diastolic 61–72; PULSE 54–84; RESP 15–20; TEMP 35.8–36.7; O2SAT 95–97; BMI 25.0
--- NOTE | 2022-09-12 06:00 | DI.RAD.S_ITS ---
PROCEDURE: XR KNEE RT 1TO2V INDICATIONS: prosthesis placement TECHNIQUE: 2 view(s) of the knee acquired. COMPARISON: [facility], , KNEE 3V RIGHT, 02/22/2016, 10:22. [facility], , KNEE 3V LEFT, 09/12/2014, 10:01. FINDINGS: Bones: Patient is status post knee joint arthroplasty. Hardware components are in expected positions. Visualized bony structures are intact. Soft tissues: Overlying postoperative changes are noted. IMPRESSION: Expected appearance of the right knee arthroplasty. Dictated by: Trever Eng M.D. on 09/12/2022 at 9:51 Approved by: Trever Eng M.D. on 09/12/2022 at 9:52
[2022-09-12] MEDS: LACTATED RINGERS 1,000 ML 42 ML IV (07:22)
[2022-09-12] MEDS: ACETAMINOPHEN 325 MG TABLET 975 MG PO (07:24)
[2022-09-12] MEDS: CELECOXIB 200 MG CAPSULE PO (07:25)
[2022-09-12] MEDS: PREGABALIN 75 MG CAPSULE PO (07:25)
--- NOTE | 2022-09-12 07:28 | PM.PREOP ---
Pre-operative Note COVID-19 COVID-19 status: Negative Result date/Date tested (Pos, Neg/Pending): 09/09/22 Interval Note History & Physical reviewed/Exam performed by Physician: Yes Changes to H&P: No H&P completed within 30 days and has changed as indicated here:: A new history and physical has been dictated as the previous 1 was done more than 30 days prior.
--- NOTE | 2022-09-12 07:28 | PM.HP.1 ---
History of Present Illness History of Present Illness Date Patient Seen: 09/12/22 Time Patient Seen: 07:29 Chief complaint: Right TKA *OPB* Narrative: This is an interim history and physical. A previous history and physical was completed on August 12, 2022. This is in the chart. There have been no substantial changes since this physical was performed. Patient History Medical History BPH (benign prostatic hyperplasia) Cervical spine disease (1979) Chronic back pain Compression fracture of L2 (2012) Depression Erectile dysfunction Former smoker Fractures Hearing loss Lumbar disc herniation with radiculopathy Mild sleep apnea (2017) Osteoarthritis Seasonal allergies Shoulder pain Tendonitis Surgical History History of right knee surgery Hx of left inguinal hernia repair (2009) Hx of right inguinal hernia repair (1997) Hx of thumb surgery (~1989) S/P lumbar discectomy Family & Social History Family History Other Adopted person Social History: household members spouse Prior Living Arrangements House Safety & Behavioral: Feels Safe in Current Yes Environment Been Physically Hurt or No Threatened By a Person Suicidal Ideation Description None Suicide Plan Description No Plan Tobacco & Substance use: Smoking Status Former smoker alcohol intake current alcohol intake frequency 3 or more drinks per day Substance Use Type marijuana Meds Home Medications and Allergies Home Medications Medication Instructions Recorded Confirmed Type epinephrine 0.3 mg/0.3 mL 0.3 mg (0.3 mL) IJ SEE 11/29/16 08/17/22 Rx injection, auto-injector (EpiPen INSTRUCTIONS #2 ea 2-Yared) melatonin 5 mg tablet 5 mg PO BEDTIME PRN Sleep 06/13/18 09/12/22 History tadalafil 5 mg tablet (Cialis) 5 mg PO QDAY PRN Sexual Activity 05/28/20 09/12/22 History doxazosin 8 mg tablet 8 mg PO DAILY 06/22/20 09/12/22 History acetaminophen 500 mg tablet 1,000 mg PO Q6H PRN Pain 08/17/22 09/12/22 History celecoxib 200 mg capsule 200 mg PO DAILY 08/17/22 09/12/22 History rosuvastatin 10 mg tablet 10 mg PO DAILY 08/17/22 09/12/22 History Allergies Allergy/AdvReac Type Severity Reaction Status Date / Time grass pollen AdvReac Verified 09/12/22 07:16 BEE STING Allergy Severe SWELLING Uncoded 09/12/22 07:16 OF EXTREMITIES 09/12/14 Review of Systems Review of Systems Narrative: See prior history and physical. Exam Vital Signs (past 8 hours): - 09/12/22 07:18 Temperature 98.1 F Pulse Rate 61 Respiratory Rate 20 Blood Pressure 124/67 Pulse Oximetry 96 Oxygen Delivery Method Room Air Oxygen Delivery Method Room Air Narrative Exam Narrative: Patient is examined while resting comfortably in his preoperative gurney. Right knee skin is intact with no signs of contraindications for surgery. The remainder of the examination is unchanged from prior history and physical. Assessment & Plan Assessment & Plan narrative: As per prior note. He has a history of end-stage osteoarthritis of the right knee which has not responded to non operative measures. He is admitted today for total joint replacement after discussion the risks benefits and alternatives as documented previously. He reviewed and updated his prior consent form. Time Spent With Patient Critical Care time: I spent a total of [] minutes of critical care time on this patient's care today; this time is exclusive of procedural time.
--- NOTE | 2022-09-12 07:38 | SUR.OPER ---
Supine on padded OR bed. Pillow under head, arms secured on padded armboards <90 degree abduction. Safety belt across torso. Non-operative leg secured with tape over blanket over lower leg. Operative leg secured in DeMayo/Keven/Nathe positioner. Foam padded brace at thigh of operative leg.
[2022-09-12] MEDS: CEFAZOLIN 2 GM/100 ML PREMIX 100 ML IV (08:00)
[2022-09-12] MEDS: TRANEXAMIC ACID 1,000 MG VIAL 1000 MG INJ ×2 (08:15→09:21)
[2022-09-12] MEDS: BUPIVACAINE 0.25% (PF) 60 ML, EPINEPHrine 0.3 MG INJ (08:23)
[2022-09-12] MEDS: BUPIVACAINE LIPOSOME 266 MG/20 ML VIAL INJ (08:23)
[2022-09-12] MEDS: MORPHINE 4 MG/ML INJ INJ (08:24)
--- NOTE | 2022-09-12 09:49 | P.OP_ITS ---
Operative Date/Time/Diagnoses Date of procedure: 09/12/22 Time of procedure: 09:49 Pre-op diagnosis: Right knee osteoarthritis Post-op diagnosis: same Procedure & Clinicians Procedure: Right total knee replacement Same procedure as scheduled: Yes Indications: The patient has had progressively worsening right knee pain with radiographic changes consistent with arthritis. Non-operative management has failed and the patient has requested total knee replacement. The risks, benefits and alternatives to surgery were discussed with the patient prior to proceeding. Risks discussed included, but were not limited to, failure to relieve pain, stiffness, infection, nerve damage, deep venous thrombosis, pulmonary embolism, stroke, coma, heart attack, permanent paralysis and , as well as the potential need for eventual revision of the prosthetic. Surgeon: Wily Dewey Orientation & Mobility Specialist: Brittny Garcia Click Yes if Unassisted: No Anesthesia Type: General, Spinal and Local Operative Notes Findings: Severe tricompartmental osteoarthritis with bone exposed in all 3 compartments. Closure Type: primary Specimen(s): none sent Prosthetic devices, grafts, tissues, transplants, or devices: Implants used in this procedure were manufactured by the [employer] and included the BCS II Journey total knee replacement with a size 7 right Oxinium femoral component, a size 6 right non porous tibial base plate, a 9 mm cross-linked polyethylene tibial insert and a 35 mm oval Yadira II patella. Applied: implant(s) Estimated Blood Loss (mL): 25 Blood products transfused: none Tourniquet time (min): 58 Procedure in detail: The patient was seen in the pre-operative area, where the patient identified the right knee as the operative site and this was marked with my initials. The patient received pre-operative antibiotics, and was taken to the operating room and placed on the operative table in the supine position. After satisfactory anesthesia, a wide area network administrator out was performed. The right leg was encircled with a tourniquet about the proximal thigh, and the leg was prepared from the toes to the tourniquet with ChloroPrep in the usual fashion and draped through sterile drapes. The leg was elevated and exsanguinated with Eschmark bandage and the tourniquet inflated to 250 mmHg pressure. The knee was approached through an approximately 16 cm incision centered over the patella and carried into the knee through a medial parapatellar arthrotomy. The anterior osteophytes and soft tissues were removed. The rotational landmarks of [place]'s line and the transepicondylar axis were marked on the femur with electrocautery, and intramedullary guide holes for the femur and tibia were created. The distal femoral cut was made in 6 degrees of valgus using the intramedullary guide at the +2 cut setting due to a flexion contracture. The proximal tibial cut was then made using the intramedullary guide, taking 9 mm of bone off the less involved side. The extension gap was checked and the rotation of the femoral component confirmed with the gap balancing system. The anterior, posterior and chamfer cuts were then made. The posterior osteophytes and soft tissues were then removed. The posterior capsule was injected with part of a mixture of 60 ml 0.25% Marcaine mixed with 20 ml Exparel and 4 mg of morphine for post-operative pain control. The remainder of this mixture was injected into the capsule and subcutaneous tissues during cement curing. The tibia was prepared with the rotation set by an extra medullary guide. Trial tibial and femoral components were then placed and the intercondylar notch cut through the femoral trial. Range of motion was 0-145 degrees, with good stability throughout the range. The patella was then cut to accommodate the patellar prosthetic. There was no need for a lateral release. The trials were then removed, and the femoral hole plugged with a bone plug. The bone was prepared with pulsatile lavage, and dried with a sponge. Cement was applied and the final prosthetics placed. Excess cement was removed during and after cement curing. After confirming there was no extruded cement posteriorly, the final tibial insert was placed. The knee was copiously irrigated and the tourniquet deflated. Hemostasis was obtained. The capsule was closed with interrupted # 2 polyester suture. The subcutaneous layer was closed with 3-0 Vicryl, and the skin with a running 3-0 V-Lock suture and Dermabond. An Aquacel Ag dressing was applied and the patient was taken to recovery having tolerated the procedure well. The assistance of Mehnaz Garcia was necessary as a skilled facilities maintenance assistant is required in total knee replacement for positioning of the limb, retraction and assistance with the complex procedure. The procedure could not have been completed expediently without her assistance. Complications: none Post-operative Condition: stable Disposition: PACU Plan for aftercare: The patient will be discharged today provided pain control is adequate. He will be allowed to weight bear as tolerated. He will follow up in my office in 2 weeks. He has been given prescriptions for Percocet and Vistaril and has been instructed in the use of Tylenol and Celebrex for additional pain control as well as aspirin for DVT prophylaxis.
[2022-09-12] MEDS: OXYCODONE IR 5 MG TABLET PO ×2 (10:18→19:49)
[2022-09-12] MEDS: ACETAMINOPHEN 325 MG TABLET 650 MG PO (11:18)
[2022-09-12] MEDS: hydrOXYzine pamoate 25 MG CAPSULE PO (11:18)
[2022-09-12] MEDS: OXYCODONE/ACETAMINOPHEN 5/325 TABLET 1 TAB PO (11:37)
--- NOTE | 2022-09-12 18:04 | PC.NURSE ---
Pt is received from PACU to Room 213 this a.m. at 1026 a.m. He is A&Ox3. He denies n/v, VSS, afebrile on RA. He still reports some tingling/numbness to R leg. MD notified to clarify if patient requires PT/OT, and per MD Zuleima not required for discharge. Pt reports pain is well controlled this afternoon 3-03/22. He reports slight numbness to RLE continued but is ambulating well using FWW. He is able to void a very small amount but reports feeling pressure in his bladder. Bladder scan post void residual =770cc. [employer] MD Freida Baker notified of patient having difficulty urinating. Instructed to straight cath patient, and inform patient it is necessary for him to void independently, normally before discharging home which may require him to stay overnight.
--- NOTE | 2022-09-12 20:22 | PC.NURSE ---
Discharge Note- Patient d/c'ed home per Md orders. Patient able to void with last PVR under 300cc's. Patient asking to go home. Discharge instructions and education reviewed with patient and signed. IV line previously removed. Patient dressed self and spouse packed belinginigs. Patient left via wheelchair to private car at [facility] all personal belongins.
== END 2022-09-12 20:15 | disposition home or self-care (01) ==
LOC: OR 06:22 → AC 06:25
PROVIDERS: PCP Internal Medicine; Referring Provider Orthopaedic Surgery; Visit Provider Orthopaedic Surgery
PROC: 0SRC0JZ Replacement of Right Knee Joint with Synthetic Substitute, Open Approach (ICD-10-PCS; CPT 27447; principal; 2022-09-12 07:45)
DX: M17.11 Unilateral primary osteoarthritis, right knee (principal)
CPT/HCPCS: 27447; 73560; C1776; C1713; C9290; J0171; J0690; J1100; J2250; J2270; J2405; J2704; J3010

== ENCOUNTER 2022-09-21 15:06 | Emergency (ER) | payer MEDICARE, OTHER, SELFPAY ==
[2022-09-12 07:00] VITALS: BMI 25.0
[2022-09-21 15:25] VITALS: BP 107/57; PULSE 85; RESP 22; TEMP 37.2; O2SAT 98
--- NOTE | 2022-09-21 15:29 | DI.RAD.S_ITS ---
PROCEDURE: XR CHEST 2V INDICATIONS: shortness of breath TECHNIQUE: 2 views of the chest were acquired. COMPARISON: [facility], , XR CHEST 2V, 02/17/2022, 10:01. FINDINGS: Surgical changes and devices: None. Lungs and pleura: Lungs are clear. No pleural effusions or pneumothorax. Mediastinum: Mediastinal contours are normal. Heart size is normal. Bones and chest wall: No suspicious bony abnormalities. Soft tissues appear unremarkable. IMPRESSION: No acute cardiopulmonary pathology. Dictated by: Zain Roach M.D. on 09/21/2022 at 16:16 Approved by: Zain Roach M.D. on 09/21/2022 at 16:17
--- NOTE | 2022-09-21 16:11 | ED.SOB ---
HPI - SOB/Dyspnea <Becca Sanabria, [facility] - Last Filed: 09/21/22 20:22> General Chief Complaint: Shortness of Breath/Dyspnea Stated Complaint: Low BP, Thinks low oxy, SOB Time Seen by Provider: 09/21/22 15:49 Source: patient Mode of arrival: Wheelchair History of Present Illness HPI Narrative: This is a 67-year-old male who presents to the emergency department 9 days after right total knee replacement here at this hospital by Dr. eDwey and complains of 2 days of congestion, productive cough, increased phlegm, runny nose, chills, and shortness of breath. He states that the shortness of breath is his worst symptom, states that this started yesterday, pain with deep inspiration. States that yesterday he had the most phlegm he has ever coughed up, has had increasing congestion is not taking any allergy medicine, Flonase, or cold medicine. He has received a flu shot this year. Patient denies taking any allergy medicine, cold medicine, states that his right knee feels like it is healing without a problem, without dependent edema to the right lower extremity. Denies any history of a blood clot. Related Data Home Medications Medication Instructions Recorded Confirmed melatonin 5 mg tablet 5 mg PO BEDTIME PRN Sleep 06/13/18 09/12/22 tadalafil 5 mg tablet (Cialis) 5 mg PO QDAY PRN Sexual Activity 05/28/20 09/12/22 doxazosin 8 mg tablet 8 mg PO DAILY 06/22/20 09/12/22 acetaminophen 500 mg tablet 1,000 mg PO Q6H PRN Pain 08/17/22 09/12/22 celecoxib 200 mg capsule 200 mg PO DAILY 08/17/22 09/12/22 rosuvastatin 10 mg tablet 10 mg PO DAILY 08/17/22 09/12/22 Previous Rx's Medication Instructions Recorded epinephrine 0.3 mg/0.3 mL 0.3 mg (0.3 mL) IJ SEE 11/29/16 injection, auto-injector (EpiPen INSTRUCTIONS #2 ea 2-Yared) aspirin 81 mg tablet,delayed 81 mg PO BID #84 tabs 09/12/22 release hydroxyzine pamoate 25 mg capsule 25 mg PO Q4HR PRN Spasms #30 caps 09/12/22 oxycodone 5 mg tablet 5 mg PO Q4H PRN Pain, Moderate 09/12/22 (4-6) #40 tabs Allergies Allergy/AdvReac Type Severity Reaction Status Date / Time bee venom protein (honey bee) Allergy Severe SWELLING Verified 09/12/22 08:25 OF EXTREMITIES 09/12/14 grass pollen AdvReac Verified 09/12/22 07:16 Review of Systems <TAPAN Rossi - Last Filed: 09/21/22 20:22> Review of Systems Narrative: Review of systems is negative for acute abnormalities unless otherwise noted in HPI Patient History <TAPAN Rossi - Last Filed: 09/21/22 20:22> Medical History BPH (benign prostatic hyperplasia) Cervical spine disease (1979) Chronic back pain Compression fracture of L2 (2012) Depression Erectile dysfunction Former smoker Fractures Hearing loss Lumbar disc herniation with radiculopathy Mild sleep apnea (2017) Osteoarthritis Seasonal allergies Shoulder pain Tendonitis Surgical History History of right knee surgery Hx of left inguinal hernia repair (2009) Hx of right inguinal hernia repair (1997) Hx of thumb surgery (~1989) S/P lumbar discectomy Family History Other Adopted person Social History household members: spouse Smoking Status: Former smoker alcohol intake: current Smoking Status: Former smoker tobacco type: cigarettes alcohol intake frequency: 3 or more drinks per day Alcohol type: wine Substance Use Type: marijuana Exam <TAPAN Rossi - Last Filed: 09/21/22 20:22> Narrative Exam Narrative: Reviewed vitals signs and nursing notes. General: cooperative, comfortable, in no acute distress, well groomed, afebrile HEENT: symmetrical facial expressions, moist mucous membranes, congestion Cardiovascular: regular rate and rhythm, S1-S2 without murmur no peripheral edema, warm extremities Respiratory: normal effort, tachypneic, breath sounds clear bilaterally, able to speak in complete sentences, without wheezing, stridor, or abnormal breath sounds. No retractions GI: abdomen soft, nontender to palpation, nondistended, without masses, rebound tenderness or exquisite tenderness with exam. MSK: moves all extremities, neurovascularly intact, no weakness, normal tone, right lower extremity with mild edema, no tenderness, no erythema or discoloration, PT and DP pulses bilateral feet are 2+, cap refills brisk without thrombophlebitis Skin: brisk capillary refill, without pallor or erythema Neuro: normal speech and cognition, A&O x3, ambulatory, clear speech Psych: mental status is grossly normal, congruent mood, normal affect, pleasant and cooperative Initial Vital Signs Initial Vital Signs: Vital Signs Temperature 99.0 F 09/21/22 15:25 Pulse Rate 85 09/21/22 15:25 Respiratory Rate 22 09/21/22 15:25 Blood Pressure 107/57 L 09/21/22 15:25 Pulse Oximetry 98 09/21/22 15:25 Oxygen Delivery Method 09/21/22 15:25 <Benny Rea DO - Last Filed: 09/24/22 17:56> Initial Vital Signs Initial Vital Signs: Vital Signs Temperature 99.0 F 09/21/22 15:25 Pulse Rate 85 09/21/22 15:25 Respiratory Rate 22 09/21/22 15:25 Blood Pressure 107/57 L 09/21/22 15:25 Pulse Oximetry 98 09/21/22 15:25 Oxygen Delivery Method 09/21/22 15:25 Scores <TAPAN Rossi - Last Filed: 09/21/22 20:22> Wells' Criteria for PE Clinical signs and symptoms of DVT: Yes PE is #1 Dx or equally likely: No Heart rate > 100: No Immobilization at least 3 days or surg in previous 4 weeks: Yes History of PE or DVT: No Hemoptysis: No Malignancy w/Treatment within 6 months or palliative: No Wells' PE Score total: 4.5 <DO Fady Cai Last Filed: 09/24/22 17:56> Norma Criteria for PE Wells' PE Score total: 4.5 Course <TAPAN Rossi - Last Filed: 09/21/22 20:22> Orders Ordered: Discontinued Medications Hydrocodone Bitart/Acetaminophen (Hydrocodone/Acet 5/325 Tablet) 1 tab PO NOW ONE Stop: 09/21/22 16:11 Last Admin: 09/21/22 16:30 Dose: 1 tab Documented By: MARLENI Sodium Chloride (Normal Saline 0.9%) 1,000 mls @ 1,000 mls/hr IV BOLUS ONE Stop: 09/21/22 18:42 Last Infusion: 09/21/22 18:35 Dose: 0 mls/hr Documented By: Admin: 09/21/22 17:49 Dose: 1,000 mls/hr Documented By: MARLENI Ketorolac Tromethamine (Ketorolac 30 Mg/Ml Vial) 15 mg IV NOW ONE Stop: 09/21/22 16:11 Last Admin: 09/21/22 16:29 Dose: 15 mg Documented By: MARLENI Vital Signs Vital signs: Vital Signs - 8 hr 09/21/22 15:25 09/21/22 17:41 09/21/22 16:30 Temperature 99.0 F 97.4 F L Pulse Rate 85 67 67 Respiratory Rate 22 14 12 Blood Pressure 107/57 L 144/64 H 124/84 Pulse Oximetry 98 98 98 Oxygen Delivery Method Room Air Room Air Room Air 09/21/22 17:40 09/21/22 18:00 09/21/22 18:00 Temperature Pulse Rate 69 80 Respiratory Rate 24 24 Blood Pressure 154/76 H Pulse Oximetry 97 96 Oxygen Delivery Method 09/21/22 18:30 09/21/22 18:30 Temperature Pulse Rate 73 Respiratory Rate 24 Blood Pressure 132/62 Pulse Oximetry 97 Oxygen Delivery Method <Benny Rea DO - Last Filed: 09/24/22 17:56> Orders Ordered: Discontinued Medications Hydrocodone Bitart/Acetaminophen (Hydrocodone/Acet 5/325 Tablet) 1 tab PO NOW ONE Stop: 09/21/22 16:11 Last Admin: 09/21/22 16:30 Dose: 1 tab Documented By: MARLENI Sodium Chloride (Normal Saline 0.9%) 1,000 mls @ 1,000 mls/hr IV BOLUS ONE Stop: 09/21/22 18:42 Last Infusion: 09/21/22 18:35 Dose: 0 mls/hr Documented By: Admin: 09/21/22 17:49 Dose: 1,000 mls/hr Documented By: MARLENI Ketorolac Tromethamine (Ketorolac 30 Mg/Ml Vial) 15 mg IV NOW ONE Stop: 09/21/22 16:11 Last Admin: 09/21/22 16:29 Dose: 15 mg Documented By: [facility] [place] Vital Signs Vital signs: Vital Signs - 8 hr 09/21/22 15:25 09/21/22 17:41 09/21/22 16:30 Temperature 99.0 F 97.4 F L Pulse Rate 85 67 67 Respiratory Rate 22 14 12 Blood Pressure 107/57 L 144/64 H 124/84 Pulse Oximetry 98 98 98 Oxygen Delivery Method Room Air Room Air Room Air 09/21/22 17:40 09/21/22 18:00 09/21/22 18:00 Temperature Pulse Rate 69 80 Respiratory Rate 24 24 Blood Pressure 154/76 H Pulse Oximetry 97 96 Oxygen Delivery Method 09/21/22 18:30 09/21/22 18:30 Temperature Pulse Rate 73 Respiratory Rate 24 Blood Pressure 132/62 Pulse Oximetry 97 Oxygen Delivery Method MDM - SOB/Dyspnea <TAPAN Rossi - Last Filed: 09/21/22 20:22> Lab Data Result diagrams: 09/21/22 16:30 09/21/22 16:30 Labs: Lab Results 09/21/22 09/21/22 09/21/22 Range/Units 15:55 16:30 16:30 WBC 10.0 (4.5-11.0) X10^3/uL RBC 3.58 L (4.5-5.9) X10^6/uL Hgb 11.6 L (13.5-17.5) g/dL Hct 33.3 L (41-53) % MCV 93.1 (80-100) fL MCH 32.3 (26-34) PG MCHC 34.7 (30-36) % RDW 12.3 (11.6-14.8) % Plt Count 366 (150-400) X10^3/uL Neut % (Auto) 77.7 H (50-75) % Lymph % (Auto) 11.5 L (25-40) % [place] % (Auto) 8.9 (3-14) % Eos % (Auto) 1.1 L (2-4) % Baso % (Auto) 0.8 (0-2) % Neut # (Auto) 7700 H (4585-9963) /uL Lymph # (Auto) 1100 (9087-0253) /uL [place] # (Auto) 900 (0-900) /uL Eos # (Auto) 100 (0-450) /uL Baso # (Auto) 100 (0-100) /uL D-Dimer (<500) ng/ml Sodium 137 (137-145) mmol/L Potassium 3.8 (3.4-5.1) mmol/L Chloride 102 (98-107) mmol/L Carbon Dioxide 23 (22-32) mmol/L BUN 26 H (9-20) mg/dL Creatinine 1.03 (0.66-1.25) mg/dL Estimated GFR > 60 (>60) mL/min BUN/Creatinine Ratio 25.2 H (6-22) Glucose 96 (80-110) mg/dL Lactate (0.7-2.1) mmol/L Calcium 9.7 (8.4-10.2) mg/dL Total Bilirubin 2.1 H (0.2-1.3) mg/dL AST 32 (17-59) IU/L ALT 31 (<50) IU/L Alkaline Phosphatase 62 (38-126) U/L Total Creatine Kinase (55-170) U/L CK-MB (CK-2) CK-MB (CK-2) Rel Index Troponin I (0.01-0.034) ng/mL C-Reactive Protein (<1.0) mg/dL NT-Pro-B Natriuret Pep (<125) pg/mL Total Protein 7.9 (6.3-8.2) g/dL Albumin 4.5 (3.5-5.0) g/dL Globulin 3.4 (1.7-4.1) g/dL Albumin/Globulin Ratio 1.3 (1.0-2.8) SARS-CoV-2 (PCR) Negative (Negative) Influenza A (RT-PCR) Flu a negative (NEGATIVE) Influenza B (RT-PCR) Flu b negative (NEGATIVE) 09/21/22 09/21/22 09/21/22 Range/Units 16:30 16:30 16:30 WBC (4.5-11.0) X10^3/uL RBC (4.5-5.9) X10^6/uL Hgb (13.5-17.5) g/dL Hct (41-53) % MCV (80-100) fL MCH (26-34) PG MCHC (30-36) % RDW (11.6-14.8) % Plt Count (150-400) X10^3/uL Neut % (Auto) (50-75) % Lymph % (Auto) (25-40) % [place] % (Auto) (3-14) % Eos % (Auto) (2-4) % Baso % (Auto) (0-2) % Neut # (Auto) (8465-7808) /uL Lymph # (Auto) (7492-5316) /uL [place] # (Auto) (0-900) /uL Eos # (Auto) (0-450) /uL Baso # (Auto) (0-100) /uL D-Dimer 5459 H (<500) ng/ml Sodium (137-145) mmol/L Potassium (3.4-5.1) mmol/L Chloride (98-107) mmol/L Carbon Dioxide (22-32) mmol/L BUN (9-20) mg/dL Creatinine (0.66-1.25) mg/dL Estimated GFR (>60) mL/min BUN/Creatinine Ratio (6-22) Glucose (80-110) mg/dL Lactate 1.3 (0.7-2.1) mmol/L Calcium (8.4-10.2) mg/dL Total Bilirubin (0.2-1.3) mg/dL AST (17-59) IU/L ALT (<50) IU/L Alkaline Phosphatase (38-126) U/L Total Creatine Kinase 87 (55-170) U/L CK-MB (CK-2) TNP CK-MB (CK-2) Rel Index TNP Troponin I < 0.012 (0.01-0.034) ng/mL C-Reactive Protein 4.9 H (<1.0) mg/dL NT-Pro-B Natriuret Pep 366 H (<125) pg/mL Total Protein (6.3-8.2) g/dL Albumin (3.5-5.0) g/dL Globulin (1.7-4.1) g/dL Albumin/Globulin Ratio (1.0-2.8) SARS-CoV-2 (PCR) (Negative) Influenza A (RT-PCR) (NEGATIVE) Influenza B (RT-PCR) (NEGATIVE) Imaging Data Chest x-ray: Radiologist's Impression: PROCEDURE:? XR CHEST 2V ? INDICATIONS:? shortness of breath ? TECHNIQUE:? 2 views of the chest were acquired.? ? COMPARISON:? [facility], CR, XR CHEST 2V, 02/17/2022, 10:01. ? FINDINGS:? ? Surgical changes and devices:? None.? ? Lungs and pleura:? Lungs are clear.? No pleural effusions or pneumothorax.? ? Mediastinum:? Mediastinal contours are normal.? Heart size is normal.? ? Bones and chest wall:? No suspicious bony abnormalities.? Soft tissues appear unremarkable.? ? IMPRESSION:? No acute cardiopulmonary pathology. ? ? Dictated by: Zain Roach M.D. on 09/21/2022 at 16:16 ? ? Approved by: Zain Roach M.D. on 09/21/2022 at 16:17 CT angio chest: Radiologist's Impression: PROCEDURE:? CT ANGIO CHEST PE PROTOCOL ? INDICATIONS:? Shortness of breath ? TECHNIQUE:? After the administration of intravenous contrast, 2 mm thick sections acquired from the pulmonary apices to the posterior costophrenic angles.? 3-dimensional maximum intensity projection (MIP) coronal and sagittal reformats were then acquired through the thorax.? For radiation dose reduction, the following was used:? automated exposure control, adjustment of mA and/or kV according to patient size.? ? COMPARISON:? None. ? FINDINGS:? Image quality:? Excellent.? ? Pulmonary arteries:? Pulmonary arteries are normal in size, and demonstrate no intraluminal filling defects to suggest central pulmonary embolism.? ? Lungs and pleura:? No consolidation.? No pleural effusions or pneumothorax.? ? Mediastinum:? No pericardial effusion.? No mediastinal or hilar adenopathy.? Thoracic aorta is normal in caliber and enhancement.? ? Bones and chest wall:? Multilevel degenerative change of the visualized spine.? No axillary or supraclavicular adenopathy.? ? Abdomen:? Visualized upper abdominal solid organs appear unremarkable in the early arterial phase of enhancement.? ? IMPRESSION:? No pulmonary embolism demonstrated. ? ? Dictated by: Ran Orr M.D. on 09/21/2022 at 17:57 ? ? Approved by: Ran Orr M.D. on 09/21/2022 at 18:12 ? ECG Data Interpretation: EKG independently reviewed by myself at 66 reveals normal sinus rhythm at 66 bpm with regular axis and intervals. No STEMI, ST segment changes, arrhythmia, or acute ischemic changes. No S1 Q 3 T3. MDM Narrative Medical decision making narrative: This is a 67-year-old gentleman who presents to the emergency department complaining of shortness of breath which has been worsening gradually and specifically over the last 2 days, he is status post a right total knee replacement by Dr. Dewey here at this hospital 9 days ago. Is healing as expected without any concerns for wound infection, no dependent right lower extremity edema that has been worsening, he states that he has had lower extremity edema to the right but it has been improving since he has been healing. Patient's COVID and influenza PCRs are negative. Patient's D-dimer is significantly elevated at 5459 patient initially refused his CTA chest but was convinced to have it after his D-dimer was elevated. Right lower extremity Doppler ultrasound is negative for DVT. Patient's BNP is positive at 366, troponin is 0.012. CT angio chest shows is negative for pulmonary embolism Patient does not have any anemia, leukocytosis, creatinine is stable at his baseline, total bilirubin is elevated today 2.1, this is higher than some of his previous levels, most recently 1.4. Presume this is likely related to dehydration. His CRP is elevated at 4.9. His BNP was slightly elevated at 366, patient still appeared dry, opted to treat him with 750 of normal saline, he was discharged prior to the remainder 250 mL. Patient did not have tachycardia, his shortness of breath resolved spontaneously today in the emergency department, he was not short of breath at the time of discharge, he does endorse urinary frequency and urgency but declined to give a urine sample. Patient was encouraged to follow-up closely with his primary care provider and orthopedics for another evaluation. I presume he most likely has an upper respiratory viral illness, his D-dimer was significantly elevated but he is postoperative and this could be accounted for from his surgery. No other concerning findings on his exam today. Patient is appropriate and amenable to discharge home. Vital signs are stable on repeat examination is unremarkable. Patient has been informed of results. Patient has been given strict return to ER precautions for any new or worsening symptoms. Patient understands to follow up closely with outpatient providers as instructed. Patient understands plan and agrees to discharge home. All questions and concerns answered at this time. <Benny Rea, DO - Last Filed: 09/24/22 17:56> Lab Data Labs: Lab Results 09/21/22 09/21/22 09/21/22 Range/Units 15:55 16:30 16:30 WBC 10.0 (4.5-11.0) X10^3/uL RBC 3.58 L (4.5-5.9) X10^6/uL Hgb 11.6 L (13.5-17.5) g/dL Hct 33.3 L (41-53) % MCV 93.1 (80-100) fL MCH 32.3 (26-34) PG MCHC 34.7 (30-36) % RDW 12.3 (11.6-14.8) % Plt Count 366 (150-400) X10^3/uL Neut % (Auto) 77.7 H (50-75) % Lymph % (Auto) 11.5 L (25-40) % [place] % (Auto) 8.9 (3-14) % Eos % (Auto) 1.1 L (2-4) % Baso % (Auto) 0.8 (0-2) % Neut # (Auto) 7700 H (9009-2541) /uL Lymph # (Auto) 1100 (8727-3310) /uL [place] # (Auto) 900 (0-900) /uL Eos # (Auto) 100 (0-450) /uL Baso # (Auto) 100 (0-100) /uL D-Dimer (<500) ng/ml Sodium 137 (137-145) mmol/L Potassium 3.8 (3.4-5.1) mmol/L Chloride 102 (98-107) mmol/L Carbon Dioxide 23 (22-32) mmol/L BUN 26 H (9-20) mg/dL Creatinine 1.03 (0.66-1.25) mg/dL Estimated GFR > 60 (>60) mL/min BUN/Creatinine Ratio 25.2 H (6-22) Glucose 96 (80-110) mg/dL Lactate (0.7-2.1) mmol/L Calcium 9.7 (8.4-10.2) mg/dL Total Bilirubin 2.1 H (0.2-1.3) mg/dL AST 32 (17-59) IU/L ALT 31 (<50) IU/L Alkaline Phosphatase 62 (38-126) U/L Total Creatine Kinase (55-170) U/L CK-MB (CK-2) CK-MB (CK-2) Rel Index Troponin I (0.01-0.034) ng/mL C-Reactive Protein (<1.0) mg/dL NT-Pro-B Natriuret Pep (<125) pg/mL Total Protein 7.9 (6.3-8.2) g/dL Albumin 4.5 (3.5-5.0) g/dL Globulin 3.4 (1.7-4.1) g/dL Albumin/Globulin Ratio 1.3 (1.0-2.8) SARS-CoV-2 (PCR) Negative (Negative) Influenza A (RT-PCR) Flu a negative (NEGATIVE) Influenza B (RT-PCR) Flu b negative (NEGATIVE) 09/21/22 09/21/22 09/21/22 Range/Units 16:30 16:30 16:30 WBC (4.5-11.0) X10^3/uL RBC (4.5-5.9) X10^6/uL Hgb (13.5-17.5) g/dL Hct (41-53) % MCV (80-100) fL MCH (26-34) PG MCHC (30-36) % RDW (11.6-14.8) % Plt Count (150-400) X10^3/uL Neut % (Auto) (50-75) % Lymph % (Auto) (25-40) % [place] % (Auto) (3-14) % Eos % (Auto) (2-4) % Baso % (Auto) (0-2) % Neut # (Auto) (6327-7528) /uL Lymph # (Auto) (7366-4739) /uL [place] # (Auto) (0-900) /uL Eos # (Auto) (0-450) /uL Baso # (Auto) (0-100) /uL D-Dimer 5459 H (<500) ng/ml Sodium (137-145) mmol/L Potassium (3.4-5.1) mmol/L Chloride (98-107) mmol/L Carbon Dioxide (22-32) mmol/L BUN (9-20) mg/dL Creatinine (0.66-1.25) mg/dL Estimated GFR (>60) mL/min BUN/Creatinine Ratio (6-22) Glucose (80-110) mg/dL Lactate 1.3 (0.7-2.1) mmol/L Calcium (8.4-10.2) mg/dL Total Bilirubin (0.2-1.3) mg/dL AST (17-59) IU/L ALT (<50) IU/L Alkaline Phosphatase (38-126) U/L Total Creatine Kinase 87 (55-170) U/L CK-MB (CK-2) TNP CK-MB (CK-2) Rel Index TNP Troponin I < 0.012 (0.01-0.034) ng/mL C-Reactive Protein 4.9 H (<1.0) mg/dL NT-Pro-B Natriuret Pep 366 H (<125) pg/mL Total Protein (6.3-8.2) g/dL Albumin (3.5-5.0) g/dL Globulin (1.7-4.1) g/dL Albumin/Globulin Ratio (1.0-2.8) SARS-CoV-2 (PCR) (Negative) Influenza A (RT-PCR) (NEGATIVE) Influenza B (RT-PCR) (NEGATIVE) Discharge Plan Departure Patient Disposition: Home Clinical Impression: D-dimer, elevated, Shortness of breath, Upper respiratory infection, viral Instructions: Common Cold, Knee Replacement, DI for Viral Upper Respiratory Infection -- Adult, DI for Shortness of Breath Activity Restrictions/Additional Instructions: *You have been diagnosed with an elevated D-dimer which is most likely related to the surgery that you have, there is no blood clot in your lungs and there has been no signs of heart strain. This is good news, please take Tylenol and ibuprofen as needed for your pain, it is okay to continue taking hydrocodone if it is helpful, please stay hydrated as your 1st priority, if you have runny nose and congestion, please take Zyrtec 20 mg for this, it will help dry it up so it does not create as much phlegm is you have right now. Your COVID and influenza tests were negative however I feel that you also have a upper respiratory viral infection which should start to get better in a couple of days since it just started. We did not find any dangerous findings on your workup today other than the elevated D-dimer. Please follow-up with your primary care provider if you are having ongoing shortness of breath or if it is worsening. If you have chest pain, feel worse or other concerning symptom, please return to the emergency department for another evaluation. Thank you for your patients today, all of your tests have come back and think that you should start getting better soon. Please continue with your pain regimen that is helpful, please take ibuprofen in addition to this 600 mg every 6 hours. Please have your urine tested if you are having urinary frequency and urgency and your concerned about infection. Please call your provider and schedule a follow-up appointment about these symptoms, hopefully you will have some improvement. Please continue to wean down your pain medications as able and return for any new or worsening symptoms. It looks like your knee is healing as expected today. *What to do: *Please continue to take your regular medications as directed. [ ] New medication prescriptions sent to your pharmacy: [ ] [ ] New medication written as a paper prescription [x ] No new medications given *Please follow up with your primary care provider in 2-3 days, call for an appointment. Let them know you were seen in the Emergency Department and that we asked that you be seen for follow-up. We will electronically transmit a record of today's note if your PCP is in our system *If you do not have a primary care provider please contact [phone] to establish care with one of the [facility] primary care providers. *Return to Emergency Department if you should have any new, worsening, or concerning symptoms, such as [fever greater than 101F, chills, worsening pain, persistent vomiting or other bothersome symptoms]. Prescriptions: No Action epinephrine [EpiPen 2-Yared] 0.3 MG/0.3 ML auto-injector 0.3 mg IJ SEE INSTRUCTIONS Qty: 2 0RF tadalafil [Cialis] 5 MG tablet 5 mg PO QDAY PRN (Reason: Sexual Activity) doxazosin 8 MG tablet 8 mg PO DAILY celecoxib 200 mg Capsule 200 mg PO DAILY acetaminophen 500 mg Tablet 1,000 mg PO Q6H PRN (Reason: Pain) rosuvastatin 10 mg Tablet 10 mg PO DAILY oxycodone 5 mg Tablet 5 mg PO Q4H PRN (Reason: Pain, Moderate (4-6)) Qty: 40 0RF hydroxyzine pamoate 25 mg Capsule 25 mg PO Q4HR PRN (Reason: Spasms) Qty: 30 0RF aspirin 81 mg Tablet,Delayed Release (Dr/Ec) 81 mg PO BID Qty: 84 0RF melatonin 5 mg tablet 5 mg PO BEDTIME PRN (Reason: Sleep) Referrals: Diana Peace MD [Primary Care Provider] - Visit Report Forms: Patient Portal/API <Benny Rea, - Last Filed: 09/24/22 17:56> Cosign [facility]ending [facility] Attestation: Dr Rea Co-Sign Statement: I was available for consultation during this patient's emergency department visit. This chart is signed by myself for administrative purposes only. I did not have direct contact with this patient during this visit. They were seen independently by the APC.
[2022-09-21] MEDS: KETOROLAC 30 MG/ML VIAL 15 MG IV (16:29)
[2022-09-21 16:30] VITALS: BP 124/84; PULSE 67; RESP 12; TEMP 36.3; O2SAT 98
[2022-09-21] MEDS: HYDROCODONE/ACET 5/325 TABLET 1 TAB PO (16:30)
[2022-09-21 16:41] LABS: COVID-19 CEPHEID 4-PLEX PCR Negative (Negative); Influenza A - CEPHEID Flu A NEGATIVE (NEGATIVE); Influenza B - CEPHEID Flu B NEGATIVE (NEGATIVE)
--- NOTE | 2022-09-21 16:50 | DI.CT.S_ITS ---
PROCEDURE: CT ANGIO CHEST PE PROTOCOL INDICATIONS: Shortness of breath TECHNIQUE: After the administration of intravenous contrast, 2 mm thick sections acquired from the pulmonary apices to the posterior costophrenic angles. 3-dimensional maximum intensity projection (MIP) coronal and sagittal reformats were then acquired through the thorax. For radiation dose reduction, the following was used: automated exposure control, adjustment of mA and/or kV according to patient size. COMPARISON: None. FINDINGS: Image quality: Excellent. Pulmonary arteries: Pulmonary arteries are normal in size, and demonstrate no intraluminal filling defects to suggest central pulmonary embolism. Lungs and pleura: No consolidation. No pleural effusions or pneumothorax. Mediastinum: No pericardial effusion. No mediastinal or hilar adenopathy. Thoracic aorta is normal in caliber and enhancement. Bones and chest wall: Multilevel degenerative change of the visualized spine. No axillary or supraclavicular adenopathy. Abdomen: Visualized upper abdominal solid organs appear unremarkable in the early arterial phase of enhancement. IMPRESSION: No pulmonary embolism demonstrated. Dictated by: Ran Orr M.D. on 09/21/2022 at 17:57 Approved by: Ran Orr M.D. on 09/21/2022 at 18:12
[2022-09-21 16:57] LABS: Add Manual Diff / Slide Review NO; Basophils Absolute Auto 100 /uL (0-100); Basophils Percent Auto 0.8 % (0-2); Eosinophils Absolute Auto 100 /uL (0-450); Eosinophils Percent Auto 1.1 % (2-4); Hematocrit 33.3 % (41-53); Hemoglobin 11.6 g/dL (13.5-17.5); Lymphocytes Absolute Auto 1100 /uL (1100-4500); Lymphocytes Percent Auto 11.5 % (25-40); Mean Corpuscular HGB Conc 34.7 % (30-36); Mean Corpuscular Hemoglobin 32.3 PG (26-34); Mean Corpuscular Volume 93.1 fL (80-100); Monocytes Absolute Auto 900 /uL (0-900); Monocytes Percent Auto 8.9 % (3-14); Neutrophils Absolute Auto 7700 /uL (1500-7000); Neutrophils Percent Auto 77.7 % (50-75); Platelet Count 366 X10^3/uL (150-400); Red Blood Cell Count 3.58 X10^6/uL (4.5-5.9); Red Cell Distribution Width 12.3 % (11.6-14.8)
[2022-09-21 17:06] LABS: D Dimer 5459 ng/ml (<500)
[2022-09-21 17:10] LABS: Alanine Aminotransferase 31 IU/L (<50); Albumin 4.5 g/dL (3.5-5.0); Albumin Globulin Ratio 1.3 (1.0-2.8); Alkaline Phosphatase 62 U/L (38-126); Aspartate Aminotransferase 32 IU/L (17-59); BUN Creatinine Ratio 25.2 (6-22); Bilirubin Total 2.1 mg/dL (0.2-1.3); Blood Urea Nitrogen 26 mg/dL (9-20); Calcium 9.7 mg/dL (8.4-10.2); Carbon Dioxide 23 mmol/L (22-32); Chloride 102 mmol/L (98-107); Estimated Glomerular Filt Rate > 60 mL/min (>60); Globulin 3.4 g/dL (1.7-4.1); Glucose 96 mg/dL (80-110); HEMOLYSIS < 15 (0-50); Potassium 3.8 mmol/L (3.4-5.1); Sodium 137 mmol/L (137-145); Total Protein 7.9 g/dL (6.3-8.2)
[2022-09-21 17:12] LABS: Lactate (Lactic Acid) 1.3 mmol/L (0.7-2.1)
--- NOTE | 2022-09-21 17:21 | DI.US.S_ITS ---
PROCEDURE: US PERIPH VENOUS LOW EXTREM RT INDICATIONS: EDEMA 8 DAYS POST RT TKA TECHNIQUE: Real-time imaging, as well as color and pulse Doppler interrogation, were performed of the lower extremity deep veins from the inguinal ligament to the popliteal fossa. COMPARISON: None. FINDINGS: The common femoral, femoral and popliteal veins are normally compressible, and free of intraluminal thrombus. Color and pulse Doppler demonstrate normal phasic intraluminal flow. There is normal augmentation response to distal compression maneuver. IMPRESSION: No evidence of deep venous thrombosis, right lower extremity Approved by: Aaron Camilo M.D. on 09/21/2022 at 17:42
[2022-09-21 17:40] VITALS: PULSE 69; RESP 24; O2SAT 97
[2022-09-21 17:41] VITALS: BP 144/64; PULSE 67; RESP 14; O2SAT 98
[2022-09-21 17:43] LABS: C-Reactive Protein Quant 4.9 mg/dL (<1.0); Creatine Kinase 87 U/L (55-170)
[2022-09-21] MEDS: SODIUM CHLORIDE 0.9% 1,000 ML 1000 ML IV (17:49)
[2022-09-21 17:52] LABS: NT-proBNP (BNP-Adult 18+) 366 pg/mL (<125); Troponin I < 0.012 ng/mL (0.01-0.034)
[2022-09-21 18:00] VITALS: BP 154/76; PULSE 80; RESP 24; O2SAT 96
[2022-09-21 18:30] VITALS: BP 132/62; PULSE 73; RESP 24; O2SAT 97
== END 2022-09-21 18:50 | disposition home or self-care (01) ==
PROVIDERS: Emergency Medicine; Emergency Provider Nurse Practitioner Critical Care Medicine; PCP Internal Medicine
DX: J06.9 Acute upper respiratory infection, unspecified (principal); R06.02 Shortness of breath; R79.89 Other specified abnormal findings of blood chemistry; Z20.822 Contact with and (suspected) exposure to COVID-19
CPT/HCPCS: 36415; 71046; 71275; 80053; 82550; 83605; 83880; 84484; 85025; 85379; 86140; 87635; 93005; 93010; 93971; 96361; 96374; 99284; 99285; C9803; J1885; Q9967

== ENCOUNTER → 2022-11-18 08:40 | Outpatient (CLI) | payer MEDICARE, OTHER, SELFPAY ==
[2022-09-12 07:00] VITALS: BMI 25.0
--- NOTE | 2022-11-18 | DI.NM.S_ITS ---
PROCEDURE: NM BENJAMIN PERF SPECT R&S PHARM Rest and pharmacological stress myocardial perfusion SPECT with gated imaging and ejection fraction RADIOPHARMACEUTICAL: 12.0 mCi Tc-99m tetrafosmin IV at rest and 26.5 mCi Tc-99m tetrafosmin IV at peak effect of pharmacological stress. [id number] was performed. INDICATIONS: Cardiomyopathy TECHNIQUE: Radiopharmaceutical was injected at peak stress test, and also at rest. SPECT images were obtained. SPECT myocardial perfusion images were displayed in short axis, horizontal long axis, and vertical long axis views. Gated images were reviewed using [employer] software. COMPARISON: None. CARDIAC STRESS: A pharmacologic stress test was performed under the supervision of an attending staff, using an infusion of lexiscan 0.4mg IV X1. Hemodynamic data: There is normal blood pressure and heart rate response to pharmacologic stress. Symptoms: The patient denied anginal chest pain. Aminophylline: none EKG: No diagnostic changes of ischemia; no ectopy. FINDINGS: Raw data: There is good myocardial uptake of radiotracer. No significant motion artifacts. Mvxp-ia-ruijq ratio is 0.31 (normal is less than 0.38 for tetrafosmin tracer). Left ventricle function: Gated images demonstrate normal left ventricular wall thickening. No segmental wall motion abnormalities. No transient ischemic dilation; TID is 1.15 (normal less than 1.3). Left ventricle resting end diastolic volume is 105mL. Left ventricle stress ejection fraction is 69%; normal range is above 45%. Myocardial perfusion: There is a moderately intense fixed inferior wall that resolves with stress prone imaging, suggesting diaphragmatic attenuation artifact. No ischemia and no definite infarction. IMPRESSION: Low risk, normal pharmaceutical nuclear stress test. 1) There is a moderately intense fixed inferior wall that resolves with stress prone imaging, suggesting diaphragmatic attenuation artifact. No ischemia and no definite infarction. 2) Normal left ventricular size, wall motion, and systolic function (EF post stress 69%). 3) No ST changes with lexiscan. 4) No angina during the study. 5) Compared to the nuclear stress done 06/23/2020, no significant change in perfusion images. Dictated by: Chloé Srinivasan MD on 11/18/2022 at 16:20 Approved by: Chloé Srinivaasn MD on 11/18/2022 at 16:22
[2022-11-18 09:48] LABS: COVID19 -Nasal RAPID Negative (Negative)
== END ==
PROVIDERS: PCP Internal Medicine; Referring Provider Internal Medicine; Visit Provider Internal Medicine
DX: I42.9 Cardiomyopathy, unspecified (principal); Z20.822 Contact with and (suspected) exposure to COVID-19
CPT/HCPCS: 78452; 87635; 93017; A9502; J2785

== ENCOUNTER → 2022-12-12 15:26 | Outpatient (CLI) | payer MEDICARE, OTHER, SELFPAY ==
[2022-09-12 07:00] VITALS: BMI 25.0
--- NOTE | 2022-12-12 15:29 | DI.RAD.S_ITS ---
PROCEDURE: XR CERVICAL SPINE 2V OR 3V INDICATIONS: NECK PAIN TECHNIQUE: 3 view(s) of the cervical spine were acquired. COMPARISON: None. FINDINGS: Bones: No fractures or dislocations to the T1 level. The lateral masses of C1 appear intact on the odontoid view. No suspicious bony lesions. Disc space narrowing and facet hypertrophy noted in the mid cervical spine. Craniovertebral relationships normal Soft tissues: No prevertebral soft tissue swelling. 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 on 12/12/2022 at 17:47
== END ==
PROVIDERS: PCP Internal Medicine; Referring Provider Internal Medicine; Visit Provider Internal Medicine
DX: M50.30 Other cervical disc degeneration, unspecified cervical region (principal); M12.9 Arthropathy, unspecified
CPT/HCPCS: 72040

== ENCOUNTER → 2024-10-03 08:49 | Outpatient (CLI) | payer MEDICARE, OTHER, SELFPAY ==
[2022-09-12 07:00] VITALS: BMI 25.0
--- NOTE | 2024-10-03 13:30 | DI.CT.S_ITS ---
PROCEDURE: CT CHEST WO CON INDICATIONS: Chest Pain TECHNIQUE: Noncontrast 5 mm thick sections acquired from the pulmonary apices to the posterior costophrenic angles. 1 mm lung window, 5 mm thick coronal and sagittal and 7 mm axial MIP reformats were then acquired. For radiation dose reduction, the following was used: automated exposure control, adjustment of mA and/or kV according to patient size. COMPARISON: [facility], CT, CT ANGIO CHEST PE PROTOCOL, 09/21/2022, 16:55. FINDINGS: Image quality: Diagnostic Lungs and pleura: No consolidation or pleural effusions. No pneumothorax. No pulmonary laceration. No overtly suspicious pulmonary nodule. Scattered micro nodules and granulomas again seen likely benign. Mediastinum, heart, and esophagus: Coronary calcifications particularly in the proximal and distal LAD. No pathologic lymph nodes by size criteria. Unremarkable esophagus on noncontrast CT Chest wall and thyroid: Unremarkable Upper abdomen: No gross abnormality on these noncontrast images Bones: No acute or suspicious osseous findings. Osseous degenerative changes particularly in the thoracic spine. No displaced acute fracture is seen. Probable left chronic clavicle fracture. IMPRESSION: No acute thoracic abnormality. No displaced fracture or acute pulmonary pleural pathology. LAD calcifications are noted Chronic appearing left clavicle deformity and osseous degenerative changes of the thoracic spine. Dictated by: Dominick Kumar M.D. on 10/03/2024 at 16:56 Approved by: Dominick Kumar M.D. on 10/03/2024 at 16:59
== END ==
PROVIDERS: PCP Internal Medicine; Referring Provider Internal Medicine; Visit Provider Internal Medicine
DX: M47.814 Spondylosis without myelopathy or radiculopathy, thoracic region (principal); I25.10 Atherosclerotic heart disease of native coronary artery without angina pectoris; R07.9 Chest pain, unspecified; M95.8 Other specified acquired deformities of musculoskeletal system
CPT/HCPCS: 71250

== ENCOUNTER → 2024-10-31 09:37 | Outpatient (CLI) | payer MEDICARE, OTHER, SELFPAY ==
[2022-09-12 07:00] VITALS: BMI 25.0
[2024-10-31 10:47] LABS: C-Reactive Protein Quant < 0.5 mg/dL (<1.0)
[2024-10-31 11:36] LABS: Erythrocyte Sedimentation Rate 2 MM/HR (0-15)
== END ==
PROVIDERS: PCP Internal Medicine; Referring Provider Orthopaedic Surgery Adult Reconstructive Orthopaedic Surgery; Visit Provider Orthopaedic Surgery Adult Reconstructive Orthopaedic Surgery
DX: Z96.651 Presence of right artificial knee joint (principal)
CPT/HCPCS: 36415; 85651; 86140

== ENCOUNTER → 2024-11-12 10:12 | Outpatient (CLI) | payer MEDICARE, OTHER, SELFPAY ==
[2022-09-12 07:00] VITALS: BMI 25.0
--- NOTE | 2024-11-12 10:14 | DI.NM.S_ITS ---
PROCEDURE: NM BONE 3 PHASE RADIOPHARMACEUTICAL: 20.1 mCi Tc-99m MDP IV. INDICATIONS: PRESENCE OF RT ARTIFICIAL KNEE JOINT TECHNIQUE: Multiple bone scintigrams were obtained after intravenous injection of Tc-99m MDP, including flow, blood pool, and delayed images centered to the region of interest. COMPARISON: None. FINDINGS: Increased radiotracer uptake about the femoral component of the right knee arthroplasty. IMPRESSION: Increased radiotracer uptake about the femoral component of the right knee arthroplasty, concerning for infection versus early loosening. Dictated by: Rolando Carlton M.D. on 11/12/2024 at 15:34 Approved by: Rolando Carlton M.D. on 11/12/2024 at 15:40
== END ==
PROVIDERS: PCP Internal Medicine; Referring Provider Orthopaedic Surgery Adult Reconstructive Orthopaedic Surgery; Visit Provider Orthopaedic Surgery Adult Reconstructive Orthopaedic Surgery
DX: Z09 Encounter for follow-up examination after completed treatment for conditions other than malignant neoplasm (principal); Z96.651 Presence of right artificial knee joint
CPT/HCPCS: 78315; A9503